=== PATIENT | female | born 1955 | race Hispanic/Latino ===

== ENCOUNTER 2020-12-08 16:01 | Emergency (ER) | payer OTHER, SELFPAY ==
--- NOTE | 2020-12-08 16:26 | ED.URI ---
HPI - URI/Sore Throat General Chief Complaint: Upper Respiratory Infection Stated Complaint: BAck fatigue, tiredness Time Seen by Provider: 12/08/20 16:26 Source: patient, RN notes reviewed and other (family friend as reconciliation machine operator) Mode of arrival: ambulatory Limitations: language barrier History of Present Illness HPI Narrative: 65 year old female accompanied by friend who is here to assist with translation. Patient reports through friend that she has had about 2 week duration of headache, lower back discomfort, some nasal drainage, fatigue, generalized body aches with no known fevers, chills or sweats but states that some symptoms are improving. Patient works in factory setting, is not sure if she has been exposed to COVID, wonders if she could have COVID. Patient relays that she has diabetes but she doesn't take her medication, friend states that patient gave herself insulin and something hurt bad and then she wouldn't take anymore and also states that metformin tablets are too big to swallow, glucose 262 per finger stick. MD elicited complaint: rhinorrhea and other (back pain , fatigue) Pertinent past history: other (uncontrolled diabetes) Onset (ago): week(s) (2) Consistency: improved Severity: mild Pain scale (0-10): 3 Description of mucous: clear Able to tolerate fluids by mouth: Yes Exacerbating factors: exertion Relieving factors: rest Associated symptoms: myalgias, headache, rhinorrhea and other (back pain) Treatments prior to arrival: other (ALEVE) Related Data Home Medications Medication Instructions Recorded Confirmed No Home Medications 12/08/20 12/08/20 Allergies Allergy/AdvReac Type Severity Reaction Status Date / Time No Known Allergies Allergy Verified 12/08/20 16:16 Review of Systems Review of Systems: Narrative: CONSTITUTIONAL: Denies fever, chills, or sweats. EYES: Denies visual changes, redness, or discharge. ENT: positive rhinorrhea, no congestion, sore throat, or otalgia. CARDIOVASCULAR: Denies chest pain, palpitations, or edema. RESPIRATORY: Denies cough or dyspnea. GASTROINTESTINAL: Denies abdominal pain, nausea, vomiting, or diarrhea. GENITOURINARY: Denies dysuria or hematuria. SKIN: Denies rash or itching. MUSCULOSKELETAL: Positive for back pain, joint pain, generalized body aches NEUROLOGIC: reports some headaches, no numbness, or weakness. PSYCHIATRIC: Denies anxiety or depression. All systems reviewed & are unremarkable except as noted in HPI and below PMFSH Past Medical History Medical History (Updated 12/08/20 @ 17:51 by Kelley Lassiter NP) Diabetes type 2, uncontrolled Elevated cholesterol Left patella fracture Surgical History Surgical History (Updated 12/08/20 @ 17:02 by Kelley Lassiter NP) Previous section Family History Family History (Updated 12/08/20 @ 17:03 by Kelley Lassiter NP) Sibling Diabetes mellitus Grandparent Diabetes mellitus Social History Social History (Updated 12/08/20 @ 16:29 by Kelley Lassiter NP) Smoking status: Never smoker Alcohol intake: never Substance use: never Living arrangements: with family Gender identity (if verbalized by the patient): Female Comments At time of signature, agree with nursing past medical, surgical, social and family history. There is no relevant family history pertinent to the presenting complaint Exam Narrative: Exam Narrative: GENERAL: Well-appearing, well-nourished, and in no acute distress. HEAD: Normocephalic, atraumatic. EYES: PERRLA and EOMI. ENT: Nares light red, clear rhinorrhea no epistaxis. Mucous membranes moist.TM's normal with good light reflex, throat pink with no tonsil enlargement or exudates, post nasal drainage. NECK: Supple.no lymphadenopathy CHEST: Clear to auscultation. No respiratory distress.SAO2 100% on room air HEART: Regular rate and rhythm. No murmur heard. Normal peripheral pulses. ABDOMEN: Soft, nontender, nondistended, normal active bowel soun
[2020-12-08 16:27] VITALS: BP 148/61; PULSE 60; RESP 18; TEMP 36.1; O2SAT 100
[2020-12-08 16:59] LABS: Glucose Point of Care 262 (65-105)
[2020-12-09 17:16] LABS: SARS-CoV-2 RNA PCR Positive
== END 2020-12-08 17:36 | disposition home or self-care (01) ==
PROVIDERS: Emergency Provider Registered Nurse; PCP Registered Nurse
DX: U07.1 COVID-19 (principal); E11.9 Type 2 diabetes mellitus without complications; E78.00 Pure hypercholesterolemia, unspecified
CPT/HCPCS: 82948; 99213; C9803; G0463; U0003; U0005

== ENCOUNTER 2022-03-23 16:31 | Observation (INO) | payer SELFPAY ==
[2022-03-23] VITALS (14 sets, daily range): BP systolic 126–167; BP diastolic 59–92; PULSE 55–79; RESP 12–22; TEMP 36.2–36.7; O2SAT 98–100
[2022-03-23 17:13] LABS: Alanine Aminotransferase 14 U/L (6-35); Alkaline Phosphatase 76 U/L (38-126); Anion Gap 4 mmol/L (8-16); Aspartate Amino Transferase 34 U/L (14-36); Bilirubin,Total < 0.1 mg/dL (0.2-1.3); Blood Urea Nitrogen 16 mg/dL (7-17); Calcium 8.7 mg/dL (8.4-10.2); Carbon Dioxide 27 mmol/L (22-30); Chloride 106 mmol/L (98-107); Estimated Glomerular Filt Rate > 60; Glucose 143 mg/dL (65-110); Potassium 4.5 mmol/L (3.4-5.0); Sodium 137 mmol/L (137-145)
[2022-03-23 17:14] LABS: Basophils Absolute Auto 0.1 K/mm3 (0.0-0.1); Eosinophils Absolute Auto 0.1 K/mm3 (0-0.3); Eosinophils Percent Auto 1.7 % (0-4.4); Hematocrit 21.2 % (37.0-47.0); Immature Granulocyte Absolute 0.03 K/mm3 (0.00-0.031); Immature Granulocyte Percent A 0.4 % (0-0.5); Lymphocytes Absolute Auto 2.99 K/mm3 (0.9-3.2); Mean Corpuscular HGB Conc 26.4 g/dl (32-36); Mean Corpuscular Hemoglobin 15.3 pg (26-34); Mean Corpuscular Volume 57.9 fl (80-100); Mean Platelet Volume 8.9 fl (7.4-10.4); Monocytes Absolute Auto 0.5 K/mm3 (0.1-0.6); Monocytes Percent Auto 5.7 % (2.6-8.5); Neutrophils Absolute Auto 4.6 K/mm3 (1.3-6.7); Neutrophils Percent Auto 55.2 % (45.5-73.1); Platelet Count Result 573 k/mm3 (150-375); Red Blood Count 3.66 M/mm3 (4.2-5.4); Red Cell Distribution Width 20.1 % (11.5-14.5); White Blood Count 8.3 K/mm3 (4.5-10.0)
[2022-03-23 17:22] LABS: Hemoglobin 5.6 g/dL (12.0-15.0)
[2022-03-23 17:41] LABS: Platelet Estimate Increased (Adequate)
[2022-03-23 17:42] LABS: Anisocytosis 1+ (NORMAL); Hypochromasia 2+ (NORMAL); Ovalocytes 1+ (NORMAL); Target Cells 2+ (NORMAL)
--- NOTE | 2022-03-23 18:06 | ED.GENADULT ---
HPI - General Adult General Chief complaint: Recheck/Abnormal Lab/Rx Stated complaint: abnormal labs Time Seen by Provider: 03/23/22 17:22 Source: RN notes reviewed History of Present Illness HPI narrative: Patient presents emergency department from home for low hemoglobin. The patient had gone to her PCP yesterday for routine blood work she was called today and told to come the emergency department as she had had a low hemoglobin level. Patient states that she been having some issues with constipation recently but she denies having any abdominal pain she denies any fevers or chills chest pain shortness of breath nausea vomiting diarrhea. She states that she is not currently on any blood thinners states she has had a colonoscopy before in the past Related Data Home Medications Medication Instructions Recorded Confirmed No Home Medications 12/08/20 12/08/20 Allergies Allergy/AdvReac Type Severity Reaction Status Date / Time No Known Allergies Allergy Verified 12/08/20 16:16 Review of Systems Review of Systems: Gen.: Denies fevers or chills ENT: Denies congestion Respiratory: Denies shortness of breath or cough CV: Denies chest pain or palpitations GI: Denies abdominal pain nausea, emesis or diarrhea Musculoskeletal: Denies back pain or muscle pain Neuro: Denies numbness, tingling, weakness or focal weakness Skin: Denies rash Heme: Reports low hemoglobin Except as documented, all other systems reviewed and negative [facility] Past Medical History Medical History Diabetes type 2, uncontrolled Elevated cholesterol Left patella fracture Surgical History Surgical History (Updated 12/08/20 @ 17:02 by Kelley Lassiter NP) Previous section Family History Family History (Updated 12/08/20 @ 17:03 by Kelley Lassiter NP) Sibling Diabetes mellitus Grandparent Diabetes mellitus Social History Social History Smoking status: Never smoker Alcohol intake: never Substance use: never Gender identity (if verbalized by the patient): Female Exam Narrative: APPEARANCE: No acute distress, nontoxic, resting in bed EYES: EOMI HEENT: Normocephalic, atraumatic, OMM RESPIRATORY: No respiratory distress Clear to auscultation bilaterally with no rhonchi wheezing or rales. CARDIOVASCULAR: Regular rate and rhythm without murmurs rubs or gallops. ABDOMINAL: Soft, nontender, nondistended, no rebound or guarding Rectal: No hemorrhoids or fissures no active bleeding small amount of dark brown stool that is mildly Hemoccult positive MUSCULOSKELETAl: Moves all extremities. No clubbing, cyanosis or edema. NEURO: Awake and alert. Following commands, speech normal, no focal deficits SKIN:: Warm, dry. No rashes lesions or abrasions PSYCHIATRIC: Normal affect/mood, Course Course Emergency Course: Patient's family is present to translate Discussed with CONCEPTOR Clara for Dr Alves agrees with admission Discussed with Dr Hurd agrees with consult and plan for colonoscopy in a.m. Discussed with patient and family results of workup and diagnosis. Discussed need for admission. Patient and family understand and agree to current treatment plan Vital Signs Vital signs: Vital Signs Temperature 98.0 F 03/23/22 16:41 Pulse Rate 74 03/23/22 16:41 Respiratory Rate 18 03/23/22 16:41 Blood Pressure 134/62 03/23/22 16:41 Pulse Oximetry 100 03/23/22 16:41 Temperature 98.0 F 03/23/22 16:41 Pulse Rate 74 03/23/22 16:41 Respiratory Rate 18 03/23/22 16:41 Blood Pressure 134/62 03/23/22 16:41 Pulse Oximetry 100 03/23/22 16:41 Medical Decision Making Vital Signs Vital Signs: Vital Signs Temperature 98.0 F 03/23/22 16:41 Pulse Rate 74 03/23/22 16:41 Respiratory Rate 18 03/23/22 16:41 Blood Pressure 134/62 03/23/22 16:41 Pulse Oximetry 100 03/23/22 16:41 Te
--- NOTE | 2022-03-23 18:19 | PC.NURSE ---
LUCERO FROM DR HOLGUIN CONSENT FOR COLONOSCOPY AND EGD GOLYTELY 4L PO NPO AT MIDNIGHT EXCEPT MEDS WITH SIPS
[2022-03-23 18:27] LABS: INR 1.1; Prothrombin Time 13.7 Seconds (11.1-14.7)
[2022-03-23] MEDS: TUBING, BLOOD PLUM PUMP TUBING 1 EACH XX ×2 (19:40→23:42)
[2022-03-23] MEDS: SODIUM CHLORIDE 0.9% IV 250 ML 30 ML IV CONT (19:40)
--- NOTE | 2022-03-23 19:40 | PC.NURSE ---
Unit of PRBCs initiated at 75ml/hr. Pt denies hx of receiving transfusions in the past. Pt denies any symptoms other than fatigue.
--- NOTE | 2022-03-23 19:55 | PC.NURSE ---
Infusion rate increased to 150ml/hr. Pt tolerating well. No adverse reactions noted.
[2022-03-23] MEDS: PEG (High)/E-LYTE SOLN 4,000 ML BTL 4000 ML PO (20:31)
[2022-03-24] VITALS (10 sets, daily range): BP systolic 135–170; BP diastolic 57–80; PULSE 50–77; RESP 12–23; TEMP 35.7–36.6; O2SAT 96–100
[2022-03-24 06:48] LABS: Basophils Absolute Auto 0.1 K/mm3 (0.0-0.1); Basophils Percent Auto 1.1 % (0.2-1.2); Eosinophils Absolute Auto 0.2 K/mm3 (0-0.3); Eosinophils Percent Auto 2.8 % (0-4.4); Hematocrit 30.3 % (37.0-47.0); Hemoglobin 8.7 g/dL (12.0-15.0); Immature Granulocyte Absolute 0.02 K/mm3 (0.00-0.031); Immature Granulocyte Percent A 0.3 % (0-0.5); Lymphocytes Absolute Auto 2.56 K/mm3 (0.9-3.2); Lymphocytes Percent Auto 35.2 % (18.3-44.2); Mean Corpuscular HGB Conc 28.7 g/dl (32-36); Mean Corpuscular Hemoglobin 18.9 pg (26-34); Mean Corpuscular Volume 65.9 fl (80-100); Mean Platelet Volume 8.9 fl (7.4-10.4); Monocytes Absolute Auto 0.6 K/mm3 (0.1-0.6); Monocytes Percent Auto 7.8 % (2.6-8.5); Neutrophils Absolute Auto 3.8 K/mm3 (1.3-6.7); Neutrophils Percent Auto 52.8 % (45.5-73.1); Platelet Count Result 472 k/mm3 (150-375); Red Cell Distribution Width 27.8 % (11.5-14.5); White Blood Count 7.3 K/mm3 (4.5-10.0)
[2022-03-24 07:03] LABS: Alanine Aminotransferase 23 U/L (6-35); Albumin Level 3.5 g/dL (3.5-5.1); Alkaline Phosphatase 81 U/L (38-126); Anion Gap 8 mmol/L (8-16); Aspartate Amino Transferase 55 U/L (14-36); Bilirubin,Total 0.4 mg/dL (0.2-1.3); Blood Urea Nitrogen 13 mg/dL (7-17); Carbon Dioxide 24 mmol/L (22-30); Chloride 107 mmol/L (98-107); Estimated Glomerular Filt Rate > 60; Glucose 93 mg/dL (65-110); Sodium 139 mmol/L (137-145)
--- NOTE | 2022-03-24 07:15 | WPDGICN ---
Assessment and Plan Assessment and plan (1) Anemia: Code(s): D64.9 - Anemia, unspecified Status: Acute Assessment and Plan: Patient presented with profound microcytic anemia. Plan to check iron studies suspect this is iron deficiency. Patient transfused last evening to increase blood count. Will continue to monitor for blood loss. She colonoscopy and EGD will be arranged. EGD will be performed today. Colonoscopy after she is able to complete preparation. (2) GI bleed: Code(s): K92.2 - Gastrointestinal hemorrhage, unspecified Status: Acute Assessment and Plan: Occult blood in stool identified. Plan is to evaluate with GI endoscopy initially an EGD in subsequent colonoscopy when she is able to tolerate preparation. GI Consult Note Consult date/time: 03/24/22 07:15 HPI: Delaney Crandall is a 66 year old female I am asked to see by the emergency room because of profound anemia. The patient speaks Latvian. patient in usual state of health presented to her family doctor for routine laboratory testing. She was found to have a rather profound anemia and for this reason sent to the emergency room. In the emergency room patient was identified as having microcytic anemia with occult blood in stool. Patient denies any obvious bleeding. She denies abdominal pain. She has never had a previous endoscopies. She does not take blood thinners. She was admitted for blood transfusion and further evaluation. Review of Systems Review of Systems: All systems reviewed & are unremarkable except as noted in HPI and below PMFSH Past Medical History Medical History Diabetes type 2, uncontrolled Elevated cholesterol Left patella fracture Surgical History Surgical History (Updated 12/08/20 @ 17:02 by Kelley Lassiter NP) Previous section Family History Family History Sibling Diabetes mellitus Grandparent Diabetes mellitus Social History Social History Smoking status: Never smoker Second hand tobacco smoke exposure: No Alcohol intake: never Substance use: never Gender identity (if verbalized by the patient): Female Spiritual care concerns: No Meds Home Medications and Allergies Home Medications Medication Instructions Recorded Confirmed Type atorvastatin 20 mg PO HS 03/23/22 03/23/22 History gabapentin 300 mg PO TID 03/23/22 03/23/22 History Allergies Allergy/AdvReac Type Severity Reaction Status Date / Time No Known Allergies Allergy Verified 12/08/20 16:16 Vital Signs Vital Signs - 24 hr 03/23/22 16:41 03/23/22 19:00 03/23/22 19:15 Temperature 98.0 F Pulse Rate 74 75 77 Respiratory Rate 18 16 16 Blood Pressure 134/62 Pulse Oximetry 100 99 99 03/23/22 19:18 03/23/22 19:30 03/23/22 19:31 Temperature 97.2 F L Pulse Rate 77 76 79 Respiratory Rate 20 19 22 H Blood Pressure 139/70 132/67 132/67 Pulse Oximetry 99 99 03/23/22 19:45 03/23/22 19:46 03/23/22 19:55 Temperature 97.8 F Pulse Rate 74 79 76 Respiratory Rate 20 21 H 21 H Blood Pressure 127/63 129/60 Pulse Oximetry 100 03/23/22 20:51 03/23/22 21:00 03/23/22 22:00 Temperature 97.7 F Pulse Rate 73 62 55 L Respiratory Rate 16 16 16 Blood Pressure 126/66 127/88 149/59 H Pulse Oximetry 100 100 100 03/23/22 23:25 03/23/22 23:29 03/24/22 01:47 Temperature 97.2 F L 97.4 F L 97.5 F L Pulse Rate 78 78 77 Respiratory Rate 12 12 12 Blood Pressure 167/82 H 156/92 H 165/78 H Pulse Oximetry 99 98 98 03/24/22 05:59 Temperature 97.8 F Pulse Rate 63 Respiratory Rate 16 Blood Pressure 135/57 L Pulse Oximetry 99 Exam Narrative: Physical exam reveals patient to be alert. Vital signs stable. HEENT exam reveals no icterus. Lungs are clear to auscultation and percussion. Heart is wit
[2022-03-24 08:02] LABS: Anisocytosis 2+ (NORMAL); Hypochromasia 2+ (NORMAL); Platelet Estimate Adequate (Adequate); Target Cells 1+ (NORMAL)
[2022-03-24 08:03] LABS: Poikilocytosis 1+ (NORMAL)
--- NOTE | 2022-03-24 09:12 | WPDANESEPPF ---
Anes - Initial Pre Proc Eval Procedure: Operation Date: 03/24/22 11:45 Proposed Procedures p Esophagogastroduodenoscopy - Mehdi Hurd MD Operation Date: 03/25/22 12:30 Proposed Procedures p Colonoscopy - Mhedi Hurd MD Date/Time: 03/24/22 09:12 Surgeon: Casi Conroy PA-C Pre Op Diagnosis: Anemia, GI bleed Patient Data Age: 66 Gender: F Height: 1.5 m Weight: 70 kg Last Vital Signs Temp 36.6 C 03/24/22 05:59 Pulse 63 03/24/22 05:59 Resp 16 03/24/22 05:59 BP 135/57 L 03/24/22 05:59 Pulse Ox 99 03/24/22 05:59 Allergies Allergy/AdvReac Type Severity Reaction Status Date / Time No Known Allergies Allergy Verified 03/24/22 10:31 Home Medications Medication Instructions Recorded Confirmed Type atorvastatin 20 mg PO HS 03/23/22 03/23/22 History gabapentin 300 mg PO TID 03/23/22 03/23/22 History Laboratory Tests 03/23/22 03/23/22 03/23/22 16:50 16:50 18:09 WBC 8.3 K/mm3 K/mm3 (4.5-10.0) RBC 3.66 M/mm3 L M/mm3 (4.2-5.4) Hgb 5.6 g/dL L* g/dL (12.0-15.0) Hct 21.2 % L % (37.0-47.0) MCV 57.9 fl L fl (80-100) MCH 15.3 pg L pg (26-34) MCHC 26.4 g/dl L g/dl (32-36) RDW 20.1 % H % (11.5-14.5) Plt Count 573 k/mm3 H k/mm3 (150-375) MPV 8.9 fl fl (7.4-10.4) Immature Gran % (Auto) 0.4 % % (0-0.5) Neut % (Auto) 55.2 % % (45.5-73.1) Lymph % (Auto) 36.0 % % (18.3-44.2) [place] % (Auto) 5.7 % % (2.6-8.5) Eos % (Auto) 1.7 % % (0-4.4) Baso % (Auto) 1.0 % % (0.2-1.2) Lymph # (Auto) 2.99 K/mm3 K/mm3 (0.9-3.2) [place] # (Auto) 0.5 K/mm3 K/mm3 (0.1-0.6) Eos # (Auto) 0.1 K/mm3 K/mm3 (0-0.3) Baso # (Auto) 0.1 K/mm3 K/mm3 (0.0-0.1) Abs Immat Gran (auto) 0.03 K/mm3 K/mm3 (0.00-0.031) Absolute Neuts (auto) 4.6 K/mm3 K/mm3 (1.3-6.7) Absolute Nucleated RBC 0.0 K/mm3 K/mm3 (0.0-0.012) Nucleated RBC % 0.0 % % (0.0-0.2) Platelet Estimate Increased (Adequate) Hypochromasia 2+ (NORMAL) Poikilocytosis Anisocytosis 1+ (NORMAL) Target Cells 2+ (NORMAL) Ovalocytes 1+ (NORMAL) PT 13.7 Seconds Seconds (11.1-14.7) INR 1.1 APTT 29.0 SECONDS SECONDS (22.3-36.8) Sodium 137 mmol/L mmol/L (137-145) Potassium 4.5 mmol/L mmol/L (3.4-5.0) Chloride 106 mmol/L mmol/L (98-107) Carbon Dioxide 27 mmol/L mmol/L (22-30) Anion Gap 4 mmol/L L mmol/L (8-16) BUN 16 mg/dL mg/dL (7-17) Creatinine 0.90 mg/dL mg/dL (0.7-1.0) Estim Creat Clear Calc Not Reportable Estimated GFR > 60 (59 - ) Glucose 143 mg/dL H mg/dL (65-110) Calcium 8.7 mg/dL mg/dL (8.4-10.2) Total Bilirubin < 0.1 mg/dL L mg/dL (0.2-1.3) AST 34 U/L U/L (14-36) ALT 14 U/L U/L (6-35) Alkaline Phosphatase 76 U/L U/L (38-126) Total Protein 7.0 g/dL g/dL (6.3-8.2) Albumin 4.0 g/dL g/dL (3.5-5.1) Blood Type Antibody Screen Crossmatch 03/23/22 03/24/22 03/24/22 18:09 06:21 06:21 WBC 7.3 K/mm3 K/mm3 (4.5-10.0) RBC 4.60 M/mm3 M/mm3 (4.2-5.4) Hgb 8.7 g/dL L D g/dL (12.0-15.0) Hct 30.3 % L % (37.0-47.0) MCV 65.9 fl L D fl (80-100) MCH 18.9 pg L D pg (26-34) MCHC 28.7 g/dl L g/dl (32-36) RDW 27.8 % H % (11.5-14.5) Plt Count 472 k/mm3 H k/mm3 (150-375) MPV 8.9 fl fl (7.4-10.4) Immature Gran % (Auto) 0.3 % % (0-0.5) Neut % (Auto) 52.8 % % (45.5-73.1) Lymph % (Auto) 35.2 % % (18.3-44.2) [place] % (A
--- NOTE | 2022-03-24 10:32 | PC.NURSE ---
to GI lab per ortega.
[2022-03-24] MEDS: LACTATED RINGERS 1,000 ML 150 ML IV CONT (10:33)
--- NOTE | 2022-03-24 10:49 | SUR.PREOP ---
Arline Interpreting service used in patient room [place] [id number] for all pre operative information and plan of care. [facility] [id number] was used with Dr Hurd and Dr Martinez for consent.
[2022-03-24] MEDS: BENZOCAINE (*SP) 60 ML SPRAY CAN (HURRICAINE) 1 SPRAY MUCOUS MEM (11:10)
--- NOTE | 2022-03-24 11:55 | SUR.PHASEII ---
Arline used for interpretation of results of the EGD. Electric Cutter Operator name Barbara #[id number].
[2022-03-24] MEDS: GABAPENTIN 300 MG CAPSULE PO ×2 (12:25→17:35)
--- NOTE | 2022-03-24 14:07 | PM.IMHP ---
H&P: HPI History of Present Illness Date/Time: 03/24/22 14:07 Chief Complaint: anemia Narrative: Pt is a 66 yo female w/ hx of HLD and DM who presented to the ED for treatment of low hemoglobin. Pt is Tajik speaking and has friends at the bedside translating for her. Pt tells me that she started having severe epigastric pain radiating to her back 1 week ago. The pain has been constant and associated with nausea, vomiting, and constipation. She denies melena, hematochezia, or hemoptysis. Pain does not radiate. Pt went to see her doctor 2 days ago and they called her yesterday to inform her of a significantly low hgb and informed her to go to the ED. Fecal occult was positive and hgb was 5.6 on arrival. Pt is being admitted as observation in this setting for further investigation and treatment. Review of Systems Review of Systems: All systems reviewed & are unremarkable except as noted in HPI and below PMFSH Past Medical History Medical History (Updated 03/24/22 @ 14:21 by Casi Conroy PA-C) Diabetes mellitus Elevated cholesterol Hyperlipidemia Left patella fracture Obesity Surgical History Surgical History Previous section Family History Family History Sibling Diabetes mellitus Grandparent Diabetes mellitus Social History Social History (Updated 03/24/22 @ 14:22 by Casi Conroy PA-C) Social History: lives with her boyfriend. states she does not have any family and wishes for her surrogate decision maker to be her friend at bedside Jasmina Les. She wishes to be a full code. 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 Gender identity (if verbalized by the patient): Female Spiritual care concerns: No Meds Home Medications and Allergies Home Medications Medication Instructions Recorded Confirmed Type atorvastatin 20 mg PO HS 03/23/22 03/23/22 History gabapentin 300 mg PO TID 03/23/22 03/23/22 History Allergies Allergy/AdvReac Type Severity Reaction Status Date / Time No Known Allergies Allergy Verified 03/24/22 10:31 Vital Signs Vital Signs - 24 hr 03/23/22 16:41 03/23/22 19:00 03/23/22 19:15 Temperature 98.0 F Pulse Rate 74 75 77 Respiratory Rate 18 16 16 Blood Pressure 134/62 Pulse Oximetry 100 99 99 03/23/22 19:18 03/23/22 19:30 03/23/22 19:31 Temperature 97.2 F L Pulse Rate 77 76 79 Respiratory Rate 20 19 22 H Blood Pressure 139/70 132/67 132/67 Pulse Oximetry 99 99 03/23/22 19:45 03/23/22 19:46 03/23/22 19:55 Temperature 97.8 F Pulse Rate 74 79 76 Respiratory Rate 20 21 H 21 H Blood Pressure 127/63 129/60 Pulse Oximetry 100 03/23/22 20:51 03/23/22 21:00 03/23/22 22:00 Temperature 97.7 F Pulse Rate 73 62 55 L Respiratory Rate 16 16 16 Blood Pressure 126/66 127/88 149/59 H Pulse Oximetry 100 100 100 03/23/22 23:25 03/23/22 23:29 03/24/22 01:47 Temperature 97.2 F L 97.4 F L 97.5 F L Pulse Rate 78 78 77 Respiratory Rate 12 12 12 Blood Pressure 167/82 H 156/92 H 165/78 H Pulse Oximetry 99 98 98 03/24/22 05:59 03/24/22 10:34 03/24/22 11:21 Temperature 97.8 F 97.1 F L Pulse Rate 63 50 L 74 Respiratory Rate 16 15 23 H Blood Pressure 135/57 L 147/67 H 152/76 H Pulse Oximetry 99 100 96 03/24/22 11:31 03/24/22 11:51 Temperature Pulse Rate 73 70 Respiratory Rate 21 H 20 Blood Pressure 156/80 H 170/70 H Pulse Oximetry 97 100 Exam Narrative: General: No acute distress, non toxic appearing Eyes: PERRL, no scleral icterus HEENT: NCAT, external ears normal, MMM Respiratory: No respiratory distress, Lungs CTA bilaterally, no wheezing Cardiovascular: RRR, no murmur Abdominal: Soft, minima
[2022-03-24 15:03] LABS: Hematocrit 33.3 % (37.0-47.0); Hemoglobin 9.8 g/dL (12.0-15.0)
[2022-03-24 15:09] LABS: Cholesterol 218 mg/dL (0-200)
[2022-03-24 15:36] LABS: Iron 49 ug/dL (37-170)
[2022-03-24 15:47] LABS: Percent Iron Saturation 10 % (20-50)
[2022-03-24 16:13] LABS: Ferritin 5.59 ng/mL (11.1-264)
[2022-03-24 17:03] LABS: Glucose Point of Care 147 mg/dl (65-105)
[2022-03-24] MEDS: PEG (High)/E-LYTE SOLN 4,000 ML BTL 3000 ML PO (17:36)
[2022-03-24 17:52] LABS: Hemoglobin A1C 6.3 % (<5.7)
[2022-03-24] MEDS: PANTOPRAZOLE 40 MG TABLET PO (20:56)
[2022-03-24] MEDS: ATORVASTATIN 20 MG TABLET PO (20:56)
[2022-03-24 21:14] LABS: Hematocrit 30.3 % (37.0-47.0); Hemoglobin 8.8 g/dL (12.0-15.0)
[2022-03-24 21:25] LABS: Glucose Point of Care 95 mg/dl (65-105)
[2022-03-25] VITALS (7 sets, daily range): BP systolic 113–140; BP diastolic 61–87; PULSE 48–57; RESP 16–18; TEMP 36.2–36.6; O2SAT 94–99
[2022-03-25 04:20] LABS: Basophils Absolute Auto 0.1 K/mm3 (0.0-0.1); Basophils Percent Auto 1.1 % (0.2-1.2); Eosinophils Absolute Auto 0.2 K/mm3 (0-0.3); Eosinophils Percent Auto 2.8 % (0-4.4); Hematocrit 29.6 % (37.0-47.0); Hemoglobin 8.6 g/dL (12.0-15.0); Immature Granulocyte Absolute 0.02 K/mm3 (0.00-0.031); Immature Granulocyte Percent A 0.3 % (0-0.5); Lymphocytes Absolute Auto 2.35 K/mm3 (0.9-3.2); Lymphocytes Percent Auto 32.6 % (18.3-44.2); Mean Corpuscular HGB Conc 29.1 g/dl (32-36); Mean Corpuscular Hemoglobin 18.6 pg (26-34); Mean Corpuscular Volume 63.9 fl (80-100); Mean Platelet Volume 8.5 fl (7.4-10.4); Monocytes Absolute Auto 0.5 K/mm3 (0.1-0.6); Monocytes Percent Auto 6.9 % (2.6-8.5); Neutrophils Absolute Auto 4.1 K/mm3 (1.3-6.7); Neutrophils Percent Auto 56.3 % (45.5-73.1); Platelet Count Result 488 k/mm3 (150-375); Red Blood Count 4.63 M/mm3 (4.2-5.4); Red Cell Distribution Width 27.6 % (11.5-14.5); White Blood Count 7.2 K/mm3 (4.5-10.0)
[2022-03-25 04:30] LABS: Alanine Aminotransferase 21 U/L (6-35); Albumin Level 3.3 g/dL (3.5-5.1); Alkaline Phosphatase 80 U/L (38-126); Anion Gap 9 mmol/L (8-16); Aspartate Amino Transferase 41 U/L (14-36); Bilirubin,Total 0.4 mg/dL (0.2-1.3); Blood Urea Nitrogen 9 mg/dL (7-17); Carbon Dioxide 24 mmol/L (22-30); Chloride 108 mmol/L (98-107); Estimated Glomerular Filt Rate > 60; Glucose 96 mg/dL (65-110); Potassium 3.5 mmol/L (3.4-5.0); Sodium 141 mmol/L (137-145)
[2022-03-25 04:42] LABS: Anisocytosis 1+ (NORMAL); Hypochromasia 1+ (NORMAL); Platelet Estimate Adequate (Adequate); Poikilocytosis 1+ (NORMAL)
[2022-03-25 04:43] LABS: Target Cells 2+ (NORMAL)
[2022-03-25 08:53] LABS: Hematocrit 30.2 % (37.0-47.0); Hemoglobin 8.7 g/dL (12.0-15.0)
[2022-03-25] MEDS: PANTOPRAZOLE 40 MG TABLET PO (09:59)
[2022-03-25] MEDS: GABAPENTIN 300 MG CAPSULE PO (09:59)
--- NOTE | 2022-03-25 10:09 | PM.IMPN ---
Progress Note: A&P Assessment and Plan (1) Anemia: Code(s): D64.9 - Anemia, unspecified Status: Acute Assessment and Plan: -came in with profound anemia w/ hgb 5.6 -up to 8.7 s/p 2 units of PRBC, has remained stable -fecal occult positive -EGD yesterday with Dr. Hurd, had ulcer as described below -colonoscopy today -ferritin low, iron low end of normal, TIBC high -continue monitoring (2) GI bleed: Code(s): K92.2 - Gastrointestinal hemorrhage, unspecified Status: Acute Assessment and Plan: -EGD w/ acute duodenal ulcer, not actively bleeding -avoid NSAIDS -Continue Protonix -colonoscopy today (3) Diabetes mellitus: Code(s): E11.9 - Type 2 diabetes mellitus without complications Status: Acute Assessment and Plan: -states she was supposed to be on meds but has not taken them for a long time -glucose was 143 on arrival -A1c 6.3 -consider sliding scale and accuchecks if blood sugar increases -glucose 96 today (4) Hyperlipidemia: Code(s): E78.5 - Hyperlipidemia, unspecified Status: Acute Assessment and Plan: -continue atorvastatin -total cholesterol 218 -lifestyle changes, diet and exercise encouraged Subjective Date/time seen: 03/25/22 10:09 Interval history: Pt is a 66 yo female w/ hx of HLD and DM who presented to the ED for treatment of low hemoglobin. Pt has no complaints today. No abd pain today. No N/V. Having some loose stools still since drinking the colon prep solution. No cp/sob. Going for colonoscopy today. Stratus used for translation. Review of Systems Review of Systems: All systems reviewed & are unremarkable except as noted in HPI and below Exam Narrative: General: No acute distress, non toxic appearing Eyes: PERRL, no scleral icterus HEENT: NCAT, external ears normal, MMM Respiratory: No respiratory distress, Lungs CTA bilaterally, no wheezing Cardiovascular: RRR, no murmur Abdominal: Soft, no ttp, non distended, no rebound or guarding Musculoskeletal: Moves all 4 extremities, no edema Neurological: A/Ox3, speech clear, no facial asymmetry Skin: Warm, dry, no rashes Psychiatric: Normal affect, normal mood Objective Data Vital Signs Vital Signs: Vital Signs - 24 hr 03/24/22 10:34 03/24/22 11:21 03/24/22 11:31 Temperature 97.1 F L Pulse Rate 50 L 74 73 Respiratory Rate 15 23 H 21 H Blood Pressure 147/67 H 152/76 H 156/80 H Pulse Oximetry 100 96 97 03/24/22 11:51 03/24/22 13:35 03/24/22 13:45 Temperature 97.5 F L 97.5 F L Pulse Rate 70 66 72 Respiratory Rate 20 20 18 Blood Pressure 170/70 H 160/77 H 160/77 H Pulse Oximetry 100 100 100 03/24/22 13:55 03/24/22 21:51 03/25/22 05:57 Temperature 97.5 F L 96.9 F L 97.2 F L Pulse Rate 60 71 57 L Respiratory Rate 18 18 16 Blood Pressure 158/72 H 147/72 H 133/62 Pulse Oximetry 100 100 99 Intake/Output Intake/Output: Intake & Output 03/22/22 03/23/22 03/24/22 03/25/22 23:59 23:59 23:59 23:59 Intake Total 350 5050 0 Output Total 4400 0 Balance 350 650 0 Meds/Results Medications: Active Medications Generic Name Dose Route Start Last Admin Trade Name Freq PRN Reason Stop Dose Admin Atorvastatin Calcium 20 mg 03/24/22 21:00 03/24/22 20:56 Atorvastatin 20 Mg Tablet PO 20 mg HS ADEOLA Administration Gabapentin 300 mg 03/24/22 09:00 03/25/22 09:59 Gabapentin 300 Mg Capsule PO 300 mg TID ADEOLA Administration Pantoprazole Sodium 40 mg 03/24/22 21:00 03/25/22 09:59 Pantoprazole 40 Mg Tablet PO 40 mg Q12HR ADEOLA Administration Labs Labs: Laboratory Results - last 24 hr 03/24/22 03/24/22 03/24/22 14:39 14:42 14:42 WBC RBC Hgb 9.8 L Hct 33.3 L MCV MCH MCHC RDW Plt Count MPV Immature Gran % (Auto) Neut % (Auto) Lymph % (Auto) [place] % (Auto) Eos % (Auto) Baso % (Auto) Lymph # (Auto) [place] # (
[2022-03-25] MEDS: LACTATED RINGERS 1,000 ML 150 ML IV CONT (10:38)
--- NOTE | 2022-03-25 10:41 | SUR.PREOP ---
Arline hot metal mixer operator Geoffrey #[id number] to obtain consent
--- NOTE | 2022-03-25 11:45 | WPDANESEPPF ---
Anes - Initial Pre Proc Eval Procedure: Operation Date: 03/24/22 11:45 Proposed Procedures p Esophagogastroduodenoscopy - Mehdi Hurd MD Operation Date: 03/25/22 12:30 Proposed Procedures p Colonoscopy - Mehdi Hurd MD Date/Time: 03/25/22 11:45 Surgeon: Casi Conroy PA-C Pre Op Diagnosis: Anemia, GI bleed Patient Data Age: 66 Gender: F Height: 1.5 m Weight: 70 kg Last Vital Signs Temp 97.4 F L 03/25/22 10:40 Pulse 50 L 03/25/22 10:40 Resp 16 03/25/22 10:40 BP 140/87 03/25/22 10:40 Pulse Ox 99 03/25/22 10:40 Allergies Allergy/AdvReac Type Severity Reaction Status Date / Time No Known Allergies Allergy Verified 03/25/22 10:38 Home Medications Medication Instructions Recorded Confirmed Type atorvastatin 20 mg PO HS 03/23/22 03/23/22 History gabapentin 300 mg PO TID 03/23/22 03/23/22 History Laboratory Tests 03/24/22 03/24/22 03/24/22 14:39 14:42 14:42 WBC RBC Hgb 9.8 g/dL L g/dL (12.0-15.0) Hct 33.3 % L % (37.0-47.0) MCV MCH MCHC RDW Plt Count MPV Immature Gran % (Auto) Neut % (Auto) Lymph % (Auto) [place] % (Auto) Eos % (Auto) Baso % (Auto) Lymph # (Auto) [place] # (Auto) Eos # (Auto) Baso # (Auto) Abs Immat Gran (auto) Absolute Neuts (auto) Absolute Nucleated RBC Nucleated RBC % Platelet Estimate Hypochromasia Poikilocytosis Anisocytosis Target Cells Sodium Potassium Chloride Carbon Dioxide Anion Gap BUN Creatinine Estim Creat Clear Calc Estimated GFR Glucose POC Capillary Glucose Hemoglobin A1c 6.3 % H % (<5.7) Calcium Iron TIBC % Saturation Ferritin Total Bilirubin AST ALT Alkaline Phosphatase Total Protein Albumin Cholesterol 218 mg/dL H mg/dL (0-200) 03/24/22 03/24/22 03/24/22 14:42 17:00 20:59 WBC RBC Hgb Hct MCV MCH MCHC RDW Plt Count MPV Immature Gran % (Auto) Neut % (Auto) Lymph % (Auto) [place] % (Auto) Eos % (Auto) Baso % (Auto) Lymph # (Auto) [place] # (Auto) Eos # (Auto) Baso # (Auto) Abs Immat Gran (auto) Absolute Neuts (auto) Absolute Nucleated RBC Nucleated RBC % Platelet Estimate Hypochromasia Poikilocytosis Anisocytosis Target Cells Sodium Potassium Chloride Carbon Dioxide Anion Gap BUN Creatinine Estim Creat Clear Calc Estimated GFR Glucose POC Capillary Glucose 147 mg/dl H mg/dl 95 mg/dl mg/dl (65-105) (65-105) Hemoglobin A1c Calcium Iron 49 ug/dL ug/dL (37-170) TIBC 502 ug/dL H ug/dL (261-462) % Saturation 10 % L % (20-50) Ferritin 5.59 ng/mL L ng/mL (11.1-264) Total Bilirubin AST ALT Alkaline Phosphatase Total Protein Albumin Cholesterol 03/24/22 03/25/22 03/25/22 21:00 04:12 04:12 WBC 7.2 K/mm3 K/mm3 (4.5-10.0) RBC 4.63 M/mm3 M/m
--- NOTE | 2022-03-25 13:53 | PM.DS ---
DS: Admitting Diagnosis Discharge Date 03/25/22 Admitting Diagnosis anemia DS: Discharge Diagnosis Discharge Diagnosis (1) Anemia: Code(s): D64.9 - Anemia, unspecified Status: Acute Assessment and Plan: -came in with profound anemia w/ hgb 5.6 -up to 8.7 s/p 2 units of PRBC, has remained stable -fecal occult positive -EGD yesterday with Dr. Hurd, had ulcer as described below -colonoscopy today w/ hemorrhoids only -ferritin low, iron low end of normal, TIBC high -start iron supplementation -stable for discharge per GI (2) GI bleed: Code(s): K92.2 - Gastrointestinal hemorrhage, unspecified Status: Acute Assessment and Plan: -EGD w/ acute duodenal ulcer, not actively bleeding -avoid NSAIDS -Continue Protonix -colonoscopy w/ hemorrhoids only, continue PPI, ready for discharge per GI (3) Diabetes mellitus: Code(s): E11.9 - Type 2 diabetes mellitus without complications Status: Acute Assessment and Plan: -states she was supposed to be on meds but has not taken them for a long time -glucose was 143 on arrival -A1c 6.3 -glucose 96 today -diet and lifestyle modifications -PCP follow up (4) Hyperlipidemia: Code(s): E78.5 - Hyperlipidemia, unspecified Status: Acute Assessment and Plan: -continue atorvastatin -total cholesterol 218 -lifestyle changes, diet and exercise encouraged DS: Summary Hospital Course Reason for hospitalization: Pt is a 66 yo female w/ hx of HLD and DM who presented to the ED for treatment of low hemoglobin. Please see HPI for further details. Hospital Course: Please see above for details of hospital course. Status at Discharge Functional status at discharge: independent ambulation Time Spent with Patient Time attestation: Total time spent providing and/or coordinating discharge services: 32 Time spent: Greater than 30 minutes Exam Narrative: General: No acute distress, non toxic appearing Eyes: PERRL, no scleral icterus HEENT: NCAT, external ears normal, MMM Respiratory: No respiratory distress, Lungs CTA bilaterally, no wheezing Cardiovascular: RRR, no murmur Abdominal: Soft, no ttp, non distended, no rebound or guarding Musculoskeletal: Moves all 4 extremities, no edema Neurological: A/Ox3, speech clear, no facial asymmetry Skin: Warm, dry, no rashes Psychiatric: Normal affect, normal mood DS: Data Data Completed and Pending Labs on day of discharge: Labs from last 24 hours 03/25/22 03/25/22 03/25/22 08:47 04:12 04:12 WBC 7.2 RBC 4.63 Hgb 8.7 L 8.6 L Hct 30.2 L 29.6 L MCV 63.9 L MCH 18.6 L MCHC 29.1 L RDW 27.6 H Plt Count 488 H MPV 8.5 Immature Gran % (Auto) 0.3 Neut % (Auto) 56.3 Lymph % (Auto) 32.6 [place] % (Auto) 6.9 Eos % (Auto) 2.8 Baso % (Auto) 1.1 Lymph # (Auto) 2.35 [place] # (Auto) 0.5 Eos # (Auto) 0.2 Baso # (Auto) 0.1 Abs Immat Gran (auto) 0.02 Absolute Neuts (auto) 4.1 Absolute Nucleated RBC 0.0 Nucleated RBC % 0.0 Platelet Estimate Adequate Hypochromasia 1+ Poikilocytosis 1+ Anisocytosis 1+ Target Cells 2+ Sodium 141 Potassium 3.5 Chloride 108 H Carbon Dioxide 24 Anion Gap 9 BUN 9 Creatinine 0.70 Estim Creat Clear Calc Not Reportable Estimated GFR > 60 Glucose 96 POC Capillary Glucose Hemoglobin A1c Calcium 8.0 L Iron TIBC % Saturation Ferritin Total Bilirubin 0.4 AST 41 H ALT 21 Alkaline Phosphatase 80 Total Protein 7.0 Albumin 3.3 L Cholesterol 03/24/22 03/24/22 03/24/22 21:00 20:59 17:00 WBC RBC Hgb 8.8 L Hct 30.3 L MCV MCH MCHC RDW Plt Count MPV Immature Gran % (Auto) Neut % (Auto) Lymph % (Auto) [place] % (Auto) Eos % (Auto) Baso % (Auto) Lymph # (Auto) [place] # (Auto) Eos # (Auto) Baso
[2022-03-25 14:36] LABS: Hematocrit 32.5 % (37.0-47.0); Hemoglobin 9.2 g/dL (12.0-15.0)
== END 2022-03-25 15:11 | disposition home or self-care (01) ==
LOC: ANHED 18:51 → ANH3MEDSUR 20:22
PROVIDERS: Internal Medicine Gastroenterology; Admitting Provider Internal Medicine; Emergency Provider Emergency Medicine; Visit Provider Physician Assistant
PROC: 0DJ08ZZ Inspection of Upper Intestinal Tract, Via Natural or Artificial Opening Endoscopic (ICD-10-PCS; CPT 43235; principal; 2022-03-24 11:45)
PROC: 0DJD8ZZ Inspection of Lower Intestinal Tract, Via Natural or Artificial Opening Endoscopic (ICD-10-PCS; CPT 45378; principal; 2022-03-25 12:30)
DX: D50.9 Iron deficiency anemia, unspecified (principal); K26.3 Acute duodenal ulcer without hemorrhage or perforation; K64.8 Other hemorrhoids; R19.5 Other fecal abnormalities; E78.5 Hyperlipidemia, unspecified; E11.9 Type 2 diabetes mellitus without complications
CPT/HCPCS: 45378; 43239; 36415; 36430; 80053; 82465; 82728; 82948; 83036; 83540; 83550; 85014; 85018; 85025; 85610; 85730; 86850; 86900; 86901; 86920; 87081; 99285; A9270; G0378; G0379; J2704; J7050; J7120; P9016

== ENCOUNTER 2022-03-28 11:10 | Outpatient (CLI) | payer SELFPAY ==
[2022-03-28 11:43] LABS: Basophils Absolute Auto 0.1 K/mm3 (0.0-0.1); Basophils Percent Auto 1.4 % (0.2-1.2); Eosinophils Absolute Auto 0.2 K/mm3 (0-0.3); Eosinophils Percent Auto 2.3 % (0-4.4); Hemoglobin 9.8 g/dL (12.0-15.0); Immature Granulocyte Absolute 0.02 K/mm3 (0.00-0.031); Immature Granulocyte Percent A 0.3 % (0-0.5); Lymphocytes Absolute Auto 1.93 K/mm3 (0.9-3.2); Mean Corpuscular HGB Conc 28.8 g/dl (32-36); Mean Corpuscular Volume 65.9 fl (80-100); Mean Platelet Volume 8.5 fl (7.4-10.4); Monocytes Absolute Auto 0.3 K/mm3 (0.1-0.6); Monocytes Percent Auto 4.7 % (2.6-8.5); Neutrophils Absolute Auto 4.2 K/mm3 (1.3-6.7); Neutrophils Percent Auto 62.3 % (45.5-73.1); Platelet Count Result 478 k/mm3 (150-375); Red Blood Count 5.16 M/mm3 (4.2-5.4); Red Cell Distribution Width 28.4 % (11.5-14.5); White Blood Count 6.7 K/mm3 (4.5-10.0)
[2022-03-28 12:09] LABS: Anisocytosis 1+ (NORMAL); Hypochromasia 1+ (NORMAL); Platelet Estimate Increased (Adequate)
== END 2022-03-28 11:11 | disposition home or self-care (01) ==
LOC: ANHLAB 11:12
PROVIDERS: Visit Provider Physician Assistant
DX: D64.9 Anemia, unspecified (principal)
CPT/HCPCS: 36415; 85025

== ENCOUNTER 2022-09-25 15:32 | Observation (INO) | payer SELFPAY ==
[2022-09-25] VITALS (8 sets, daily range): BP systolic 93–117; BP diastolic 66–71; PULSE 85–92; RESP 15–20; TEMP 36.4–36.6; O2SAT 93–99; BMI 25.8
--- NOTE | ~2022-09-25 | CT_ITS ---
EXAMINATION: CT abdomen pelvis w con DATE: 09/25/2022 19:22 INDICATION: abdominal pain TECHNIQUE: Computed tomography (CT) of the abdomen and pelvis was performed with 100 mL Omnipaque-350 intravenous contrast. Automated exposure control and iterative reconstruction technique were employe d. The dose-length product was 572.99 mGy-cm. COMPARISON: None. FINDINGS: Lower thorax: Dilated central pulmonary arteries as can be seen with pulmonary arterial hypertension. Mild coronary artery calcification. Small hiatal hernia. Liver: Normal. Biliary/Gallbladder: Gallbladder hydrops. Gallbladder wall edema. Pericholecystic inflammatory change . Cholelithiasis. Mild intrahepatic hepatic duct dilation, without evidence of obstructing stone or m ass, possibly reactive. Pancreas: No mass or duct dilation. Spleen: Splenic cysts or hemangiomas. Adrenals:1.6 cm indeterminate right adrenal nodule Kidneys: Simple left upper pole cyst. No suspicious mass, stone, or hydronephrosis. GI tract: Distal esophageal and gastric wall edema as can be seen with esophagitis/gastritis. Inflamm atory change at the gastric antrum, proximal duodenum, and hepatic flexure likely reactive. No small or large bowel dilation. Normal appendix. Mesentery/Peritoneum: No ascites, mass, or free air. Retroperitoneum: No mass. Atherosclerotic abdominal aortic and/or arterial calcifications. Pelvis: Pelvic organs are within normal limits. Soft Tissues: Soft tissues and body wall unremarkable. Bones: No acute osseous finding. IMPRESSION: Acute cholecystitis. Adjacent reactive inflammatory changes present in the gastric antrum, duodenum, and hepatic flexure. Reviewed, dictated and finalized at location K. [employer] PRODUCTS MANAGER IMPRESSION: Acute cholecystitis. Adjacent reactive inflammatory changes present in the manish cristina antrum, duodenum, and hepatic flexure.
--- NOTE | 2022-09-25 18:22 | ED.GENADULT ---
HPI - General Adult General Chief complaint: Nausea/Vomiting/Diarrhea Stated complaint: abdominal pain, back pain, N/V Time Seen by Provider: 09/25/22 17:50 History of Present Illness HPI narrative: 67-year-old female presenting to the emergency department for evaluation of nausea vomiting constipation since . Patient states that she went out to a [employer] restaurant and and since then has had diffuse abdominal pain with associated nausea vomiting. Patient states that her blood sugars have been running high and that she had not had a bowel movement until just earlier today. Patient reports upper abdominal pain. Patient states pain does not radiate to her back. Patient denies any prior history of gallbladder disease. Patient denies any prior history of diabetic ketoacidosis. Patient denies any history of small bowel obstruction. Patient does have a prior surgical history of a . Patient also had a recent endoscopy and colonoscopy in March. Patient is Ecuadorean-speaking and the hydrotechnical specialist junior was used. Related Data Home Medications Medication Instructions Recorded Confirmed atorvastatin 20 mg tablet 20 mg PO HS 03/23/22 03/23/22 gabapentin 300 mg capsule 300 mg PO TID 03/23/22 03/23/22 Allergies Allergy/AdvReac Type Severity Reaction Status Date / Time No Known Allergies Allergy Verified 09/25/22 15:32 Review of Systems Review of Systems: CONSTITUTIONAL: Denies fever, chills, or sweats. EYES: Denies visual changes, redness, or discharge. ENT: Denies rhinorrhea, congestion, sore throat, or otalgia. CARDIOVASCULAR: Denies chest pain, palpitations, or edema. RESPIRATORY: Denies cough or dyspnea. GASTROINTESTINAL: See HPI GENITOURINARY: Denies dysuria or hematuria. SKIN: Denies rash or itching. MUSCULOSKELETAL: Denies back pain, joint pain, or myalgia. NEUROLOGIC: Denies headache, numbness, or weakness. [facility] Past Medical History Medical History (Updated 09/25/22 @ 20:29 by Stu Garcia MD) Diabetes mellitus Elevated cholesterol Hyperlipidemia Left patella fracture Obesity Surgical History Surgical History Previous section Family History Family History Sibling Diabetes mellitus Grandparent Diabetes mellitus Social History Social History (Updated 03/24/22 @ 14:22 by Casi Conroy PA-C) Social History: lives with her boyfriend. states she does not have any family and wishes for her surrogate decision maker to be her friend at bedside Jasmina Saldana. She wishes to be a full code. 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 HEAD: normocephalic, atraumatic. EYES: PERRLA/EOMI, conjunctivae clear. NOSE: Normal no drainage THROAT: Pharynx clear, no exudate. NECK: Supple. No adenopathy, no masses. RESPIRATORY: Airway patent, respirations nonlabored. Clear to auscultation bilaterally, no rales, rhonchi, wheezing. CARDIOVASCULAR: Regular rate and rhythm without murmurs rubs or gallops. ABDOMINAL: Soft, nondistended, normal bowel sounds, diffuse upper abdominal tenderness to palpation MUSCULOSKELETAL: Moves all extremities. Strength/ROM intact, No edema, No calf tenderness. NEURO: Alert. Cranial nerves II through XII intact. Grossly intact SKIN: Warm, dry. Normal Color Course Course Emergency Course: CT scan did show evidence of acute cholecystitis. Patient does have a leukocytosis of 24. Patient blood sugar did improve from 459 to 280. Patient does have elevated AST ALT and alk phos. No elevation of bilirubin. CT showed no evidence
[2022-09-25 18:24] LABS: Hematocrit 38.2 % (37.0-47.0); Hemoglobin 12.1 g/dL (12.0-15.0); Mean Corpuscular HGB Conc 31.7 g/dl (32-36); Mean Corpuscular Volume 85.3 fl (80-100); Mean Platelet Volume 10.8 fl (7.4-10.4); Platelet Count Result 311 k/mm3 (150-375); Red Blood Count 4.48 M/mm3 (4.2-5.4); Red Cell Distribution Width 14.1 % (11.5-14.5)
[2022-09-25 18:35] LABS: Alanine Aminotransferase 99 U/L (6-35); Albumin Level 3.7 g/dL (3.5-5.1); Alkaline Phosphatase 506 U/L (38-126); Anion Gap 12 mmol/L (8-16); Aspartate Amino Transferase 241 U/L (14-36); Bilirubin,Total 1.3 mg/dL (0.2-1.3); Blood Urea Nitrogen 24 mg/dL (7-17); Calcium 8.2 mg/dL (8.4-10.2); Carbon Dioxide 22 mmol/L (22-30); Chloride 98 mmol/L (98-107); Estimated CRCL calculation 27 ml/min; Estimated Glomerular Filt Rate 32; Glucose 459 mg/dL (65-110); Potassium 4.8 mmol/L (3.4-5.0); Sodium 132 mmol/L (137-145)
[2022-09-25 18:46] LABS: Lymphocytes Percent Manual 5 % (18-44); Monocytes Percent Manual 5 % (3-9); Neutrophils Percent Manual 85 % (46-73)
[2022-09-25 18:47] LABS: Band Neutrophils Percent 5 % (0-6); Platelet Estimate Adequate (Adequate)
[2022-09-25] MEDS: ONDANSETRON INJ 4 MG/2 ML VIAL IV PUSH (18:54)
[2022-09-25] MEDS: HYDROmorphone HCL INJ (*CRX) 1 MG/ML SYR 0.5 MG IV PUSH (18:54)
[2022-09-25] MEDS: SODIUM CHLORIDE 0.9% IV 1,000 ML 999 ML IV CONT ×2 (18:55→19:36)
[2022-09-25 20:06] LABS: Glucose Point of Care 280 mg/dl (65-105)
[2022-09-25 21:30] LABS: Influenza A QL RT-PCR Negative (Negative); Influenza B QL RT-PCR Negative (Negative); SARS-CoV-2 RNA PCR Negative
--- NOTE | 2022-09-25 22:16 | PC.NURSE ---
Patient came to 3 Med-Surg at 21:10 on 09/25/2022
--- NOTE | 2022-09-25 22:34 | PM.IMHP ---
H&P: HPI History of Present Illness Date/Time: 09/25/22 22:34 Chief Complaint: Abdominal pain Narrative: This is a Moldovan-speaking 67-year-old female who came to the emergency room with complaints of abdominal pain. The patient came to the emergency department for evaluation of nausea vomiting constipation since . The patient went to a [employer] buffet on Monday and she had diffuse abdominal pain with the nausea and vomiting. She stated that her blood sugars have been running 5 and 400. She stated that she takes insulin and a couple pills. She was having difficulty urinating and difficulty having a bowel movement. However when she came up to 3rd floor she went to the bathroom and stated she had a bowel movement. The information was obtained through an earth moving machine operator. The patient stated that she has tried many things [id number] including [place] and lemon water. She was not able to take care of the discomfort on her own then that is why she came to the emergency room. The [employer] earth moving machine operator was used during the interview. Some information was also obtained from her old records. The patient stated that she has had upper and lower in at endoscopy in the past and had a history of a duodenal ulcer. Today her white count was 24.0. Sodium 132 and creatinine 1.6. Her baseline creatinine is normal. Her blood sugar was 149 and then 280. Calcium 8.2. AST is 241 ALT is 99 alkaline phosphatase 506. She is negative for influenza A/B and COVID. She was given Dilaudid, Zofran 2 L of IV fluid and started on Zosyn. CT of the abdomen was read as acute cholecystitis. Adjacent reactive inflammatory changes present the gas from [facility], duodenum and hepatic flexure. Surgery has been consulted and the plan is for surgery tomorrow. The patient is being admitted to observation status on the date of service of 09/25/2022. Review of Systems Review of Systems: See HPI All systems reviewed & are unremarkable except as noted in HPI and below Constitutional: Constitutional: Reports as per HPI and Reports no additional constitutional complaints Eyes: Eyes: Reports as per HPI and Reports no additional eye complaints ENT: Reports system reviewed and no additional complaints, except as documented and Reports Normal hearing present Cardiovascular: Cardiovascular: Reports no additional cardiovascular complaints Respiratory: Respiratory: Reports no additional respiratory complaints and Reports no additional respiratory complaints Gastrointestinal: Gastrointestinal: Reports as per HPI and Reports no additional gastrointestinal complaints Musculoskeletal: Musculoskeletal: Reports no additional musculoskeletal complaints Integumentary/Breasts: Skin/Breast: Reports system reviewed and no additional complaints, except as docu and Reports as per HPI Neurologic: Reports system reviewed and no additional complaints, except as documented, Reports as per HPI and Reports Normal hearing present Psychiatric: Psychiatric: Reports no additional psychiatric complaints and Reports as per HPI Endocrine: Endocrine: Reports no additional endocrine complaints Hematologic/Lymphatic: Hematologic/Lymphatic: Reports no additional hematologic/lymphatic complaints Allergic/Immunologic: Allergic/Immunologic: Reports no additional allergic/immunologic complaints [facility] Past Medical History Medical History Diabetes mellitus Elevated cholesterol Hyperlipidemia Left patella fracture Obesity Surgical History Surgical History (Updated 09/25/22 @ 22:45 by Mesha Corey NP) H/O: hysterectomy Previous section Family History Family History Sibling Diabetes mellitus Grandparent Diabetes mellitus Social History Social History (Updated 09/25/22 @ 22:45 by Mesha Corey NP) Social History: states she does not have any family
[2022-09-25] MEDS: SODIUM CHLORIDE 0.9% IV 1,000 ML 100 ML IV CONT (22:50)
[2022-09-26] VITALS (13 sets, daily range): BP systolic 101–134; BP diastolic 56–76; PULSE 70–90; RESP 16–25; TEMP 36.3–37.2; O2SAT 93–100
[2022-09-26 00:59] LABS: Glucose Point of Care 129 mg/dl (65-105)
[2022-09-26 05:32] LABS: Glucose Point of Care 82 mg/dl (65-105)
[2022-09-26 06:05] LABS: Lactic Acid Reflex 0.9 mmol/L (0.7-2.0)
[2022-09-26 06:09] LABS: Alanine Aminotransferase 98 U/L (6-35); Alkaline Phosphatase 349 U/L (38-126); Anion Gap 7 mmol/L (8-16); Aspartate Amino Transferase 169 U/L (14-36); Bilirubin,Total 0.8 mg/dL (0.2-1.3); Blood Urea Nitrogen 20 mg/dL (7-17); Calcium 7.3 mg/dL (8.4-10.2); Carbon Dioxide 20 mmol/L (22-30); Chloride 110 mmol/L (98-107); Estimated CRCL calculation 36 ml/min; Estimated Glomerular Filt Rate 49; Glucose 90 mg/dL (65-110); Lipase 18 U/L (23-300); Magnesium 2.5 mg/dL (1.6-2.3); Sodium 137 mmol/L (137-145)
[2022-09-26 06:14] LABS: Hemoglobin A1C 11.3 % (<5.7)
[2022-09-26] MEDS: SODIUM CHLORIDE 0.9% IV 1,000 ML 100 ML IV CONT (09:19)
[2022-09-26] MEDS: PANTOPRAZOLE SODIUM IV 40 MG VIAL IV PUSH ×2 (09:20→20:12)
--- NOTE | 2022-09-26 10:51 | PM.IMPN ---
Progress Note: A&P Assessment and Plan (1) Acute cholecystitis: Code(s): K81.0 - Acute cholecystitis Status: Acute Assessment and Plan: Patient presented with c/o abdominal pain, N/V, fever and chills for several days, CT abd/pelvis suggests acute cholecystitis with mild intrahepatic hepatic duct dilation. General surgery consulted and appreciate recommendations. Continue with IV Zosyn. blood cultures pending. NPO for possible surgery today. MRCP ordered and pending. Continue IV fluids, add dextrose to fluids as she reports taking her insulin last night. continue with analgesics. (2) Diabetes mellitus: Qualifiers: Diabetes mellitus type: type 2 Diabetes mellitus shelter insulin use: with shelter use Diabetes mellitus complication status: without complication Qualified Code(s): E11.9 - Type 2 diabetes mellitus without complications; Z79.4 - USP (current) use of insulin Code(s): E11.9 - Type 2 diabetes mellitus without complications Status: Acute Assessment and Plan: Chronic, uncontrolled. A1c 11% now, was 6.3% in March 2022 when she was last admitted. She reports taking Tradjenta and another small pill. She reports compliance with insulin therapy except for 48 hours this past week when she could not get out of bed. She does report switching from syringe to pen insulin, but does not think she is having complications. Accu-Cheks every 6 hours with sliding scale insulin with sliding scale insulin with hypoglycemic protocol Blood glucose 57 at noon. Will change to D5NS@100 mL/hour. Lantus 10 units at HS after surgery and when eating. Will attempt to obtain her PCPs recent office visit notes and labs to evaluate diabetes medications and glucose control prior to admission. (3) Hyperlipidemia: Qualifiers: Hyperlipidemia type: mixed hyperlipidemia Qualified Code(s): E78.2 - Mixed hyperlipidemia Code(s): E78.5 - Hyperlipidemia, unspecified Status: Chronic Assessment and Plan: Chronic. LFTs mildly elevated secondary to acute cholecystitis. Resume status when tolerating PO and LFTs return to normal. Plan CODE STATUS: FULL CODE Disposition: Observation, return home when tolerating diet. Time Spent With Patient Time with patient: 25 - 35 minutes Subjective Date/time seen: 09/26/22 10:51 Patient is Romansh-speaking only. Using an japanese interpreter service, she reports c/o aching abdominal pain and hunger. She reports fever and chills prior to admission and had not taken her insulin for at least 48 hours due to be so weak she could not get out of bed. She resumed her insulin yesterday, prior to admission. She occasionally checks her blood sugar at home, but thinks that her glucometer is not correct because it was fluctuating a bit and over 500 yesterday. She was seen by her PCP recently and told everything was okay. No nausea or vomiting today. Review of Systems Review of Systems: All systems reviewed & are unremarkable except as noted in HPI and below Exam Narrative: General: No acute distress.?Sitting up in bed Mental Status/Psych: Awake, alert and oriented to name. clear speech. Smiling. Cooperative. Skin: Skin fair, warm, dry and intact without rashes or lesions. Fair turgor.? HEENT: Normocephalic. Sclera is non-icteric. Pupils equal and round. Oral mucosa moist. improving dental tartar. Neck: Grossly normal. Heart: S1 and S2 regular rate and rhythm. No murmurs, gallops, or rubs auscultated. Chest: Respirations even and unlabored. Lung sounds clear to bilateral upper lobes and with scattered rhonchi bilateral lower lobes.? Poor inspiratory effort Abdomen: Soft, round and non-tender to palpation.? Bowel sounds present in all 4 quadrants. Extremities:? Grossly normal ROM. No edema, erythema, or tenderness to palpation. Radial and dorsalis pedis pulses bilaterally. Neurological: Cognitive delay. Sensation and movement intact al
--- NOTE | 2022-09-26 11:39 | PM.CNGS ---
Assessment and Plan Assessment and plan (1) Acute cholecystitis: Code(s): K81.0 - Acute cholecystitis Status: Acute Assessment and Plan: I have reviewed the CT and discussed the findings with the patient. She has evidence of acute cholecystitis. Her liver enzymes are slightly elevated but her bilirubin is normal. This is likely reactive due to the inflammation. I have recommended proceeding with urgent laparoscopic cholecystectomy, possible open. I discussed the procedure, risks, benefits, and alternatives. Questions were answered. Patient would like to proceed. (2) Diabetes mellitus: Code(s): E11.9 - Type 2 diabetes mellitus without complications Status: Acute (3) Elevated liver enzymes: Code(s): R74.8 - Abnormal levels of other serum enzymes Status: Acute History of Present Illness Consult details Consult date: 09/26/22 Reason for consult: other ( Cholecystitis) Narrative: this is a 67-year-old Bulgarian-speaking woman who I am asked to see for acute cholecystitis. The electronic semiconductor processor was used to discuss with the patient. She presented to the emergency department last night with abdominal pain that had been going on for the past 3 days. She states that she ate [place]ese food and began experiencing pain after this. She has not eaten very much for the past several days due to the constant pain. She also felt feverish and was having chills. She had never experienced anything like this before. She does have a prior history of an ulcer but states that this pain is different. Her pain is slightly improved this morning but she still does have some tenderness on exam. Review of Systems Review of Systems: All systems reviewed & are unremarkable except as noted in HPI and below Eyes: Eyes: Denies change in vision ENT: Denies hearing loss, Denies neck pain and Denies sore throat Cardiovascular: Cardiovascular: Denies chest pain and Denies dyspnea Respiratory: Respiratory: Denies cough, Denies dyspnea and Denies wheezing Gastrointestinal: Gastrointestinal: Reports as per HPI Genitourinary: Genitourinary: Denies hematuria and Denies dysuria Musculoskeletal: Musculoskeletal: Denies arthralgias, Denies joint swelling and Denies neck pain Allergic/Immunologic: Allergic/Immunologic: Denies wheezing [facility] Past Medical History Medical History (Updated 09/26/22 @ 11:50 by Adrian Fajardo DO) Diabetes mellitus Elevated cholesterol Hyperlipidemia Left patella fracture Obesity Surgical History Surgical History (Updated 09/25/22 @ 22:45 by Mesha Corey NP) H/O: hysterectomy Previous section Family History Family History Sibling Diabetes mellitus Grandparent Diabetes mellitus Social History Social History (Updated 09/25/22 @ 22:45 by Mesha Corey NP) Social History: states she does not have any family here and wishes for her surrogate decision maker to be her friend Jasmina Saldana. The patient told me that she has 7 children. Six R female and 1 is male. She tells me that she is and lives with the couple. She works for factory She wishes to be a full code. 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
[2022-09-26 11:51] LABS: Glucose Point of Care 61 mg/dl (65-105)
[2022-09-26 11:51] LABS: Glucose Point of Care 58 mg/dl (65-105)
[2022-09-26] MEDS: DEXTROSE 50% 25 GM/50 ML SYRINGE IV PUSH (11:53)
[2022-09-26 12:49] LABS: Glucose Point of Care 90 mg/dl (65-105)
--- NOTE | 2022-09-26 14:04 | WPDHPUPDATE1 ---
History and Physical Update Update Date/Time: 09/26/22 14:04 History and Physical has been reviewed, including an updated exam of the patient. There are NO changes in the patient's condition. Risks, benefits, and alternatives have been discussed and questions answered. Patient agrees to proceed with procedure.
--- NOTE | 2022-09-26 14:20 | PC.NURSE ---
pt to surgery via bed, brief report given to surgery RNs to transport
--- NOTE | 2022-09-26 14:41 | WPDANESEPPF ---
Anes - Initial Pre Proc Eval Procedure: Operation Date: 09/26/22 15:45 Proposed Procedures p Laparoscopic Cholecystectomy - Adrian Fajardo DO Date/Time: 09/26/22 14:41 Surgeon: Anatoliy Camacho DO Pre Op Diagnosis: acute cholecystitis Patient Data Age: 67 Gender: F Height: 1.6 m Weight: 66.2 kg Last Vital Signs Temp 37.1 C 09/26/22 13:52 Pulse 82 09/26/22 13:52 Resp 18 09/26/22 13:52 BP 113/56 L 09/26/22 13:52 Pulse Ox 93 09/26/22 13:52 O2 Del Method Room Air 09/26/22 08:00 Allergies Allergy/AdvReac Type Severity Reaction Status Date / Time No Known Allergies Allergy Verified 09/25/22 15:32 Home Medications Medication Instructions Recorded Confirmed Type atorvastatin 20 mg tablet 20 mg PO HS 03/23/22 09/25/22 History gabapentin 300 mg capsule 300 mg PO TID 03/23/22 09/25/22 History pantoprazole 40 mg tablet,delayed 40 mg PO Q12HR 30 days #60 tabs 03/25/22 09/25/22 Rx release alogliptin 25 mg tablet (Nesina) 25 mg PO 1XD 09/25/22 09/25/22 History canagliflozin 100 mg tablet 100 mg PO 1XD 09/25/22 09/25/22 History (Invokana) ferrous sulfate 325 mg (65 mg 325 mg PO BIDWM 09/25/22 09/25/22 History iron) tablet insulin aspar prot-insulin aspart 20 unit subcut 1XD 09/25/22 09/25/22 History 100 unit/mL (70-30) subcutaneous pen (Novolog Mix 70-30FlexPen U-100) insulin detemir U-100 100 unit/mL 10 unit subcut 1XD 09/25/22 09/25/22 History (3 mL) subcutaneous pen (Levemir FlexTouch U-100 Insulin) Laboratory Tests 09/25/22 09/25/22 09/25/22 18:17 18:17 20:03 WBC 24.0 K/mm3 H K/mm3 (4.5-10.0) RBC 4.48 M/mm3 M/mm3 (4.2-5.4) Hgb 12.1 g/dL g/dL (12.0-15.0) Hct 38.2 % % (37.0-47.0) MCV 85.3 fl fl (80-100) MCH 27.0 pg pg (26-34) MCHC 31.7 g/dl L g/dl (32-36) RDW 14.1 % % (11.5-14.5) Plt Count 311 k/mm3 k/mm3 (150-375) MPV 10.8 fl H fl (7.4-10.4) Immature Gran % (Auto) Not Reportable Neut % (Auto) Not Reportable Lymph % (Auto) Not Reportable [place] % (Auto) Not Reportable Eos % (Auto) Not Reportable Baso % (Auto) Not Reportable Lymph # (Auto) Not Reportable [place] # (Auto) Not Reportable Eos # (Auto) Not Reportable Baso # (Auto) Not Reportable Abs Immat Gran (auto) Not Reportable Absolute Neuts (auto) Not Reportable Absolute Nucleated RBC Not Reportable Neutrophils % (Manual) 85 % H % (46-73) Band Neutrophils % 5 % % (0-6) Lymphocytes % (Manual) 5 % L % (18-44) Monocytes % (Manual) 5 % % (3-9) Nucleated RBC % Not Reportable Abs Neuts (Manual) 21.60 K/mm3 H K/mm3 (1.7-7.2) Abs Lymphs (Manual) 1.20 K/mm3 K/mm3 (1.1-4.5) Abs Monocytes (Manual) 1.20 K/mm3 H K/mm3 (0.1-0.90) Platelet Estimate Adequate (Adequate) Schistocytes Not Reportable Sodium 132 mmol/L L mmol/L (137-145) Potassium 4.8 mmol/L mmol/L (3.4-5.0) Chloride 98 mmol/L mmol/L (98-107) Carbon Dioxide 22 mmol/L mmol/L (22-30) Anion Gap 12 mmol/L mmol/L (8-16) BUN 24 mg/dL H D mg/dL (7-17) Creatinine 1.60 mg/dL H mg/dL (0.7-1.0) Estim Creat Clear Calc 27 ml/min ml/min Estimated GFR 32 L (59 - ) Glucose 459 mg/dL H mg/dL (65-110) POC Capillary Glucose 280 mg/dl H mg/dl (65-105) Hemoglobin A1c Lactic Acid Calcium 8.2 mg/dL L mg/dL (8.4-10.2) Magnesium Total Bilirubin 1.3 mg/dL mg/dL (0.2-1.3) AST 241 U/L H U/L (14-36) ALT 99 U/L H U/L (6-35) Alkaline Phosphatase 506 U/L H U/L (38-1
[2022-09-26] MEDS: LACTATED RINGERS 1,000 ML 30 ML IV CONT ×2 (15:00→16:59)
--- NOTE | 2022-09-26 16:58 | W.PM.PROC2 ---
Procedure Note - Detailed Date of Procedure 09/26/22 Pre-op Diagnosis acute calculous cholecystitis Post-op Diagnosis Same Procedure Performed Laparoscopic Cholecystectomy Surgeon Adrian Fajardo, DO Anesthesia General and Local (0.5% bupivacaine) Indications This is a 67-year-old woman who presented to the emergency department overnight with right upper quadrant abdominal pain for the past 4 days. She states that her pain started after eating [place] food. She has had constant pain since. She was also experiencing some feverish feelings and chills. She had never had symptoms like this in the past. She presented with a high white blood count and slightly elevated liver enzymes. Discussions were made with the patient about treatment options and decision was made to proceed with urgent laparoscopic cholecystectomy, possible open. Findings Laparoscopic cholecystectomy was performed. The gallbladder was tense and dilated and contained many small to medium sized gallstones. The neck of the gallbladder was indurated, but the cystic duct appeared normal in size. There appeared to be a stone stuck at the neck of the gallbladder. This was causing gallbladder hydrops. The gallbladder wall was very indurated. No other significant abnormalities were noted. The gallbladder was removed and sent to the lab for pathology. Description of Procedure Procedure as well as risks, benefits, and alternatives were discussed with patient. Written consent was obtained and placed in chart prior to procedure. The patient was brought back to surgical suite. Patient was placed in supine position on operating table. Time-out was done to confirm patient and procedure. Patient was then intubated by the anesthesia department. Abdomen was prepped and draped in sterile fashion using chlorhexidine prep. 0.5% bupivacaine with epinephrine was infiltrated at each site of incision. A 5 millimeter incision was made near the umbilicus, and a 5 millimeter Optiview trocar was advanced through the abdominal layers under direct visualization. Once inside the abdominal cavity, carbon dioxide was insufflated to create a pneumoperitoneum. The camera was inserted and the abdomen was inspected. No immediate abnormalities were identified. The patient was placed in reverse Trendelenburg position and rotated slightly to the left. An 11 millimeter incision was made in the subxiphoid region, and an 11 millimeter trocar was inserted under direct visualization. Two 5 millimeter incisions were made in the right upper quadrant, and two 5 millimeter trocars were inserted under direct visualization. The gallbladder was identified and grasped at the fundus and retracted superiorly. It was then grasped at the infundibulum retracted laterally. Careful dissection around the neck of the gallbladder was performed using blunt dissection with a [place] grasper and hook electrocautery. The cystic duct was identified, and a window was created behind it. The cystic artery was also identified and a window was created behind it. The critical view of safety was identified, visualizing the cystic duct running directly into the neck of the gallbladder, and the cystic artery running directly into the wall of the gallbladder. A 5 millimeter clip tax appraiser was then used to place 2 clips proximally and 1 clip distally on both the cystic duct and cystic artery. They were then both transected using endoscopic scissors. Once safely away from the jere hepatitis, the gallbladder was dissected free from the liver bed using hook electrocautery. Hemostasis was achieved along the way. The gallbladder was removed completely and then removed through the subxiphoid port. The liver bed was then inspected. Hemostasis appeared adequate, and our clips appeared secure. The area was gently irrigated with sterile saline. No other abnormalities were seen. The patient was flattened out in bed, and 1 final inspection was made around the a
[2022-09-26 17:08] LABS: Glucose Point of Care 78 mg/dl (65-105)
[2022-09-26] MEDS: fentaNYL CITRATE INJ (*CRX) 100 MCG/2 ML VIAL 25 MCG IV PUSH ×2 (17:40→17:45)
--- NOTE | 2022-09-26 18:33 | PC.NURSE ---
pt returned from surgery via bed, reviewed plan of care and MD orders
[2022-09-26] MEDS: DEXTROSE 5%/0.9% SOD CHL 1,000 ML 100 ML IV CONT (18:45)
[2022-09-26] MEDS: INSULIN GLARGINE (*BKC) 100 UNITS/ML 10 UNITS SUB-Q (20:11)
[2022-09-26] MEDS: HYDROcodone/acetaminophen (*CRX) 5-325 MG TABLET 1 TAB PO (20:17)
[2022-09-26 20:27] LABS: Glucose Point of Care 176 mg/dl (65-105)
[2022-09-27 00:39] VITALS: BP 115/60; PULSE 78; RESP 20; TEMP 36.4; O2SAT 95
[2022-09-27 04:00] VITALS: BP 125/67; PULSE 85; RESP 20; TEMP 36.5; O2SAT 93
[2022-09-27] MEDS: DEXTROSE 5%/0.9% SOD CHL 1,000 ML 100 ML IV CONT (05:19)
[2022-09-27 05:43] LABS: Appearance Urine Clear (Clear); Bilirubin Urine 1+ (Negative); Blood Urine Trace-lysed (Negative); Color Urine Yellow (Yellow); Glucose Urine UA 3+ mg/dL (Negative); Ketones Urine 2+ mg/dL (Negative); Leukocyte Esterase Ur Negative LEU/UL (NEGATIVE); Nitrate Urine Negative (Negative); Protein Urine 1+ mg/dL (Negative); pH Urine 5.5 (5.0-9.0)
[2022-09-27 05:48] LABS: Bacteria Urine Trace /hpf; Squamous Epithelial Cell Urine Few /hpf (Few)
[2022-09-27 05:49] LABS: Add Urine Microscopic? YES
[2022-09-27 06:38] LABS: Basophils Absolute Auto 0.1 K/mm3 (0.0-0.1); Basophils Percent Auto 0.5 % (0.2-1.2); Eosinophils Absolute Auto 0.1 K/mm3 (0-0.3); Eosinophils Percent Auto 0.4 % (0-4.4); Hematocrit 32.3 % (37.0-47.0); Hemoglobin 10.3 g/dL (12.0-15.0); Immature Granulocyte Absolute 0.13 K/mm3 (0.00-0.031); Immature Granulocyte Percent A 1.1 % (0-0.5); Lymphocytes Absolute Auto 1.31 K/mm3 (0.9-3.2); Lymphocytes Percent Auto 11.6 % (18.3-44.2); Mean Corpuscular HGB Conc 31.9 g/dl (32-36); Mean Corpuscular Hemoglobin 26.7 pg (26-34); Mean Corpuscular Volume 83.7 fl (80-100); Mean Platelet Volume 10.8 fl (7.4-10.4); Monocytes Absolute Auto 0.8 K/mm3 (0.1-0.6); Monocytes Percent Auto 7.1 % (2.6-8.5); Neutrophils Percent Auto 79.3 % (45.5-73.1); Platelet Count Result 271 k/mm3 (150-375); Red Blood Count 3.86 M/mm3 (4.2-5.4); Red Cell Distribution Width 14.7 % (11.5-14.5); White Blood Count 11.3 K/mm3 (4.5-10.0)
[2022-09-27 07:01] LABS: Alanine Aminotransferase 75 U/L (6-35); Albumin Level 2.7 g/dL (3.5-5.1); Alkaline Phosphatase 422 U/L (38-126); Anion Gap 10 mmol/L (8-16); Aspartate Amino Transferase 88 U/L (14-36); Bilirubin,Total 0.7 mg/dL (0.2-1.3); Blood Urea Nitrogen 13 mg/dL (7-17); Calcium 6.9 mg/dL (8.4-10.2); Carbon Dioxide 17 mmol/L (22-30); Chloride 110 mmol/L (98-107); Estimated CRCL calculation 43 ml/min; Estimated Glomerular Filt Rate > 60; Glucose 173 mg/dL (65-110); Potassium 3.6 mmol/L (3.4-5.0); Sodium 137 mmol/L (137-145)
[2022-09-27 07:37] LABS: Glucose Point of Care 176 mg/dl (65-105)
[2022-09-27 08:00] VITALS: BP 122/68; PULSE 76; RESP 18; TEMP 36.6; O2SAT 93
[2022-09-27] MEDS: PANTOPRAZOLE SODIUM IV 40 MG VIAL IV PUSH ×2 (09:12→20:27)
[2022-09-27] MEDS: HYDROcodone/acetaminophen (*CRX) 7.5-325 MG TABLET 1 TAB PO (09:19)
[2022-09-27 11:28] LABS: Glucose Point of Care 306 mg/dl (65-105)
--- NOTE | 2022-09-27 11:35 | WPDANESPN ---
Anes - Prog Note Post-Op Date/Time: 09/27/22 11:35 Vital Signs: Last Vital Signs Temp 36.6 C 09/27/22 08:00 Pulse 76 09/27/22 08:00 Resp 18 09/27/22 08:00 BP 122/68 09/27/22 08:00 Pulse Ox 93 09/27/22 08:00 O2 Del Method Room Air 09/26/22 20:00 O2 Flow Rate 3 09/26/22 18:00 Pain Score (VAS): 0 I/O: Intake & Output 09/26/22 09/27/22 09/27/22 23:59 07:59 15:59 Intake Total 350 1350 240 Output Total 1200 400 400 Balance -850 950 -160 Laboratory Tests 09/27/22 06:04 09/27/22 06:04 09/26/22 09/26/22 09/26/22 11:43 11:49 12:28 WBC RBC Hgb Hct MCV MCH MCHC RDW Plt Count MPV Immature Gran % (Auto) Neut % (Auto) Lymph % (Auto) [place] % (Auto) Eos % (Auto) Baso % (Auto) Lymph # (Auto) [place] # (Auto) Eos # (Auto) Baso # (Auto) Abs Immat Gran (auto) Absolute Neuts (auto) Absolute Nucleated RBC Nucleated RBC % Sodium Potassium Chloride Carbon Dioxide Anion Gap BUN Creatinine Estim Creat Clear Calc Estimated GFR Glucose POC Capillary Glucose 58 L* 61 L 90 Calcium Total Bilirubin AST ALT Alkaline Phosphatase Total Protein Albumin Urine Color Urine Appearance Urine pH Ur Specific [place] Urine Protein Urine Glucose (UA) Urine Ketones Ur Blood (Man) Urine Nitrate Urine Bilirubin Urine Urobilinogen Ur Leukocyte Esterase Urine RBC Urine WBC Ur Squamous Epith Cells Urine Bacteria 09/26/22 09/26/22 09/27/22 17:04 20:10 05:16 WBC RBC Hgb Hct MCV MCH MCHC RDW Plt Count MPV Immature Gran % (Auto) Neut % (Auto) Lymph % (Auto) [place] % (Auto) Eos % (Auto) Baso % (Auto) Lymph # (Auto) [place] # (Auto) Eos # (Auto) Baso # (Auto) Abs Immat Gran (auto) Absolute Neuts (auto) Absolute Nucleated RBC Nucleated RBC % Sodium Potassium Chloride Carbon Dioxide Anion Gap BUN Creatinine Estim Creat Clear Calc Estimated GFR Glucose POC Capillary Glucose 78 176 H Calcium Total Bilirubin AST ALT Alkaline Phosphatase Total Protein Albumin Urine Color Yellow Urine Appearance Clear Urine pH 5.5 Ur Specific [place] 1.010 Urine Protein 1+ H Urine Glucose (UA) 3+ H Urine Ketones 2+ H Ur Blood (Man) Trace-lysed Urine Nitrate Negative Urine Bilirubin 1+ H Urine Urobilinogen 1.0 Ur Leukocyte Esterase Negative Urine RBC 3-5 H Urine WBC 10-15 H Ur Squamous Epith Cells Few Urine Bacteria Trace 09/27/22 09/27/22 09/27/22 06:04 06:04 07:31 WBC 11.3 H RBC 3.86 L Hgb 10.3 L Hct 32.3 L MCV 83.7 MCH 26.7 MCHC 31.9 L RDW 14.7 H Plt Count 271 MPV 10.8 H Immature Gran % (Auto) 1.1 H Neut % (Auto) 79.3 H Lymph % (Auto) 11.6 L [place] % (Auto) 7.1 Eos % (Auto) 0.4 Baso % (Auto) 0.5 Lymph # (Auto) 1.31 [place] # (Auto) 0.8 H Eos # (Auto) 0.1 Baso # (Auto) 0.1 Abs Immat Gran (auto) 0.13 H Absolute Neuts (auto) 9.0 H Absolute Nucleated RBC 0.0 Nucleated RBC % 0.0 Sodium 137 Potassium 3.6 Chloride 110 H Carbon Dioxide 17 L Anion Gap 10 BUN 13 D Creatinine 0.90 Estim Creat Clear Calc 43 Estimated GFR > 60 Glucose 173 H POC Capillary Glucose 176 H Calcium 6.9 L Total Bilirubin 0.7 AST 88 H ALT 75 H Alkaline Phosphatase 422 H Total Protein 6.0 L Albumin 2.7 L Urine Color Urine Appearance Urine pH Ur Specific [place] Urine Protein Urine Glucose (UA) Urine Ketones Ur Blood (Man) Urine Nitrate Urine Bilirubin Urine Urobilinogen Ur Leukocyte Esterase Urine RBC Urine WBC Ur Squamous Epith Cells Urine Bacteria 09/27/22 11:22 WB
[2022-09-27 11:59] VITALS: BP 133/81; PULSE 92; RESP 18; TEMP 36.6; O2SAT 83
--- NOTE | 2022-09-27 12:31 | PM.PNGS ---
Progress Note: A&P Assessment and Plan (1) Acute cholecystitis: Code(s): K81.0 - Acute cholecystitis Status: Acute Assessment and Plan: Doing well post-op day #1. Advance to low fat diet. Encouraged increasing activity as tolerated. Okay from our standpoint to discharge the patient when okay with the primary service. Follow-up in [address] Fajardo. (2) Diabetes mellitus: Qualifiers: Diabetes mellitus type: type 2 Diabetes mellitus detention insulin use: with detention use Diabetes mellitus complication status: without complication Qualified Code(s): E11.9 - Type 2 diabetes mellitus without complications; Z79.4 - nursing home (current) use of insulin Code(s): E11.9 - Type 2 diabetes mellitus without complications Status: Acute (3) Elevated liver enzymes: Code(s): R74.8 - Abnormal levels of other serum enzymes Status: Acute Assessment and Plan: Trending down. Plan I have discussed the patient's case and plan of care with Dr. Fajardo. Subjective Subjective Date/Time Seen: 09/27/22 12:31 Post Op day: 1 (laparoscopic cholecystectomy) Patient reports: tolerating liquids well, flatus and afebrile Interval history: Patient seen and examined. The [employer] cofounder was used during our entire conversation and my evaluation (Rosalee #[id number]). She is feeling very sore at the incision but no other specific complaints. Tolerating liquids well. She has been up and walked to the bathroom with assistance. Exam Const: General: comfortable, no acute distress and awake Orientation/consciousness: patient oriented x3 GI: Inspection: non-distended and incision (incisions dry and intact) GI Palp: Yes Soft to palpation and Yes Tenderness to palpation present (GI) (incisional) Auscultation: normal bowel sounds Neuro: General: moves all extremities and no focal motor deficits Extrem: General: no edema Psych: Mental Status: mental status grossly normal Insight: Good insight present (Psych) Objective Data Vital Signs Vital Signs: Vital Signs - 24 hr 09/26/22 13:52 09/26/22 14:29 09/26/22 16:59 Temperature 98.8 F 99.0 F 98.1 F Pulse Rate 82 73 90 Respiratory Rate 18 16 20 Blood Pressure 113/56 L 124/58 L 124/73 Pulse Oximetry 93 99 100 Oxygen Delivery Room Air Simple Face Mask Oxygen Flow Rate 6 09/26/22 17:13 09/26/22 17:30 09/26/22 17:45 Temperature Pulse Rate 87 83 80 Respiratory Rate 24 H 25 H 20 Blood Pressure 134/74 121/76 115/66 Pulse Oximetry 100 95 98 Oxygen Delivery Simple Face Mask Simple Face Mask Nasal Cannula Oxygen Flow Rate 6 6 3 09/26/22 18:00 09/26/22 19:03 09/26/22 19:18 Temperature 97.4 F L 97.6 F Pulse Rate 78 77 70 Respiratory Rate 20 18 18 Blood Pressure 122/72 115/62 110/62 Pulse Oximetry 99 97 98 Oxygen Delivery Nasal Cannula Oxygen Flow Rate 3 09/26/22 19:47 09/26/22 20:55 09/26/22 20:00 Temperature 97.5 F L 97.7 F Pulse Rate 77 81 Respiratory Rate 18 20 Blood Pressure 117/57 L 122/61 Pulse Oximetry 95 98 98 Oxygen Delivery Room Air Oxygen Flow Rate 09/27/22 00:39 09/27/22 04:00 09/27/22 08:00 Temperature 97.5 F L 97.7 F 97.8 F Pulse Rate 78 85 76 Respiratory Rate 20 20 18 Blood Pressure 115/60 125/67 122/68 Pulse Oximetry 95 93 93 Oxygen Delivery Oxygen Flow Rate 09/27/22 08:00 09/27/22 11:59 Temperature 97.8 F Pulse Rate 76 92 Respiratory Rate 18 18 Blood Pressure 133/81 Pulse Oximetry 93 83 L Oxygen Delivery Room Air Oxygen Flow Rate Intake/Output Intake/Output: Intake & Output 09/24/22 09/25/22 09/26/22 09/27/22 23:59 23:59 23:59 23:59 Intake Total 2049 1500 1590 Output Total 1200 800 Balance 0 300 790 Meds/Results Medications: Active Medications Generic Name Dose Route Start Last Admin Trade Name Freq PRN Reason Stop Dose Admin Hydrocodone Bitart/Acetaminophen 1 tab 09/26/22 18:09 09/26/22 20:17 Hydrocodone/Acetaminophe
[2022-09-27] MEDS: INSULIN ASPART (*BKC) 100 UNITS/ML SUB-Q (12:57)
--- NOTE | 2022-09-27 13:50 | PM.IMPN ---
Progress Note: A&P Assessment and Plan (1) Acute cholecystitis: Code(s): K81.0 - Acute cholecystitis Status: Acute Assessment and Plan: Patient presented with c/o abdominal pain, N/V, fever and chills for several days, CT abd/pelvis suggests acute cholecystitis with mild intrahepatic hepatic duct dilation. General surgery consulted and s/p lap lise 09/25/22. On IV Zosyn and antibiotics per surgical team. blood cultures Negative to date. Surgery advancing diet as tolerated to low fat. Saline lock IV fluids. Continue with analgesics. Encourage ambulation. (2) Diabetes mellitus: Qualifiers: Diabetes mellitus complication status: without complication Diabetes mellitus long term care phlebotomist insulin use: with long term care phlebotomist use Diabetes mellitus type: type 2 Qualified Code(s): E11.9 - Type 2 diabetes mellitus without complications; Z79.4 - snf (current) use of insulin Code(s): E11.9 - Type 2 diabetes mellitus without complications Status: Acute Assessment and Plan: Chronic, uncontrolled. A1c 11% now, was 6.3% in March 2022 when she was last admitted. She reports taking Tradjenta and another small pill. She reports compliance with insulin therapy except for 48 hours this past week when she could not get out of bed. She does report switching from syringe to pen insulin, but does not think she is having complications. Accu-Cheks AC/HS with sliding scale insulin and with hypoglycemic protocol. 09/26/22 Blood glucose 57 at noon while NPO. Changed to D5NS@100 mL/hour that was stopped 09/27 in am. Continued on Lantus 10 units at HS. Resume NPH 70/30 20 units with breakfast. ?A1c falsely elevated. Awaiting PCPs recent office visit notes and labs to evaluate diabetes medications and glucose control prior to admission. (3) Hyperlipidemia: Qualifiers: Hyperlipidemia type: mixed hyperlipidemia Qualified Code(s): E78.2 - Mixed hyperlipidemia Code(s): E78.5 - Hyperlipidemia, unspecified Status: Chronic Assessment and Plan: Chronic. LFTs mildly elevated secondary to acute cholecystitis. Resume status when tolerating PO and LFTs return to normal. Plan CODE STATUS: FULL CODE Disposition: Observation, return home when tolerating diet. Time Spent With Patient Time with patient: 15 - 25 minutes Subjective Date/time seen: 11/22/22 13:50 She c/o slight dizziness this afternoon. Nursing reports she recently had opioid pain medication. She denies vision changes, slurred speech, unilateral extremity weakness or paresthesia. She states the dizziness comes and goes. She has been tolerating liquids and is awaiting solid food. She reports her roommate is not home until tomorrow and she has no way of getting into her home. Information was obtained via interpreting service. Review of Systems Review of Systems: All systems reviewed & are unremarkable except as noted in HPI and below Exam Narrative: General: No acute distress.?Ly in bed Mental Status/Psych: Awake, alert and oriented at baseline. clear speech. [place]-speaking. Cooperative. Skin: Skin fair, warm, dry without rashes or lesions. Fair turgor.?Lap sites x3 with surgical glue, no erythema, edema or discharge. HEENT: Normocephalic. Sclera is non-icteric. Pupils equal and round. Oral mucosa moist. Neck: Grossly normal. Heart: S1 and S2 regular rate and rhythm. No murmurs, gallops, or rubs auscultated. Chest: Respirations even and unlabored. Lung sounds clear to bilateral upper lobes and with scattered rhonchi bilateral lower lobes.? Poor inspiratory effort Abdomen: Soft, round and non-tender to palpation.? Bowel sounds hypoactive in all 4 quadrants. Extremities:? Grossly normal ROM. No edema, erythema, or tenderness to palpation. Radial and dorsalis pedis pulses +2 bilaterally. Neurological: No focal deficits. Sensation intact all extremities. No clonus, tremors or fasciculations. CN 2-12 grossly intact. Gait and DTR not tested.
[2022-09-27 16:00] VITALS: BP 143/86; PULSE 82; RESP 18; O2SAT 90
[2022-09-27 16:11] LABS: Glucose Point of Care 154 mg/dl (65-105)
[2022-09-27 20:00] VITALS: BP 122/72; PULSE 82; RESP 14; TEMP 36.8; O2SAT 93
[2022-09-27] MEDS: INSULIN GLARGINE (*BKC) 100 UNITS/ML 10 UNITS SUB-Q (20:27)
[2022-09-27 20:36] LABS: Glucose Point of Care 173 mg/dl (65-105)
[2022-09-28] VITALS: BP 147/81; PULSE 77; RESP 14; TEMP 36.1; O2SAT 93
[2022-09-28 04:00] VITALS: BP 158/82; PULSE 75; RESP 14; TEMP 36.1; O2SAT 93
[2022-09-28 05:28] LABS: Glucose Point of Care 91 mg/dl (65-105)
[2022-09-28 07:22] LABS: Alanine Aminotransferase 75 U/L (6-35); Albumin Level 3.7 g/dL (3.5-5.1); Alkaline Phosphatase 640 U/L (38-126); Anion Gap 12 mmol/L (8-16); Aspartate Amino Transferase 62 U/L (14-36); Bilirubin,Total 0.7 mg/dL (0.2-1.3); Blood Urea Nitrogen 9 mg/dL (7-17); Calcium 8.3 mg/dL (8.4-10.2); Carbon Dioxide 21 mmol/L (22-30); Chloride 108 mmol/L (98-107); Estimated CRCL calculation 43 ml/min; Estimated Glomerular Filt Rate > 60; Glucose 102 mg/dL (65-110); Potassium 3.9 mmol/L (3.4-5.0); Sodium 141 mmol/L (137-145)
[2022-09-28 07:26] LABS: Basophils Absolute Auto 0.1 K/mm3 (0.0-0.1); Basophils Percent Auto 0.8 % (0.2-1.2); Eosinophils Absolute Auto 0.1 K/mm3 (0-0.3); Eosinophils Percent Auto 1.1 % (0-4.4); Hematocrit 40.7 % (37.0-47.0); Hemoglobin 12.7 g/dL (12.0-15.0); Immature Granulocyte Percent A 4.6 % (0-0.5); Lymphocytes Absolute Auto 1.87 K/mm3 (0.9-3.2); Lymphocytes Percent Auto 17.3 % (18.3-44.2); Mean Corpuscular HGB Conc 31.2 g/dl (32-36); Mean Corpuscular Hemoglobin 26.9 pg (26-34); Mean Corpuscular Volume 86.2 fl (80-100); Mean Platelet Volume 10.9 fl (7.4-10.4); Monocytes Absolute Auto 0.8 K/mm3 (0.1-0.6); Monocytes Percent Auto 6.9 % (2.6-8.5); Neutrophils Absolute Auto 7.5 K/mm3 (1.3-6.7); Neutrophils Percent Auto 69.3 % (45.5-73.1); Platelet Count Result 321 k/mm3 (150-375); Red Blood Count 4.72 M/mm3 (4.2-5.4); Red Cell Distribution Width 14.8 % (11.5-14.5); White Blood Count 10.8 K/mm3 (4.5-10.0)
[2022-09-28 07:53] LABS: Glucose Point of Care 94 mg/dl (65-105)
[2022-09-28 08:00] VITALS: BP 154/77; PULSE 69; RESP 16; TEMP 36.4; O2SAT 99
[2022-09-28] MEDS: PANTOPRAZOLE SODIUM IV 40 MG VIAL IV PUSH (08:50)
[2022-09-28 12:00] VITALS: BP 154/77; PULSE 73; RESP 16; TEMP 36.5; O2SAT 99
[2022-09-28 12:05] LABS: Glucose Point of Care 162 mg/dl (65-105)
[2022-09-28] MEDS: IBUPROFEN 600 MG TABLET PO (12:58)
--- NOTE | 2022-09-28 14:44 | PM.DS ---
DS: Admitting Diagnosis Discharge Date 09/28/2022 Admitting Diagnosis acute cholecystitis DS: Discharge Diagnosis Discharge Diagnosis (1) Acute cholecystitis: Code(s): K81.0 - Acute cholecystitis Status: Acute (2) Diabetes mellitus: Qualifiers: Diabetes mellitus complication status: without complication Diabetes mellitus fci insulin use: with long term care phlebotomist use Diabetes mellitus type: type 2 Qualified Code(s): E11.9 - Type 2 diabetes mellitus without complications; Z79.4 - skilled nursing (current) use of insulin Code(s): E11.9 - Type 2 diabetes mellitus without complications Status: Acute (3) Hyperlipidemia: Qualifiers: Hyperlipidemia type: mixed hyperlipidemia Qualified Code(s): E78.2 - Mixed hyperlipidemia Code(s): E78.5 - Hyperlipidemia, unspecified Status: Chronic Plan CODE STATUS: FULL CODE Disposition: Observation, return home when tolerating diet. DS: Summary Hospital Course Reason for hospitalization: acute cholecystitis Hospital Course: Patient presents to the ER on 09/25/2022 with complaints of nausea vomiting. patient has a history of uncontrolled diabetes, hyperlipidemia and obesity. Patient is a non-Tajik speaking patient and his primary language is Nigerien. We were able to use Translating junior. patient has a medical history of diabetes, elevated cholesterol, hyperlipidemia, and obesity. patient attempted at home remedies for her nausea, vomiting, and abdominal pain with no success. patient was seen by surgery and surgery was conducted on 09/26/2022. patient diet was advanced to a low-fat diet and patient was able to tolerate it well. Patient unable to go home on 09/27/2022 due to lack of transportation. Today patient had some mild discomfort in her epigastric and right upper quadrant. Patient denies fever, N/V, chest pain, shortness of breath, lower extremity edema. Patient able to be discharged today per surgeon and will follow up in 2 weeks. Patient able to get a ride home today from one of her children but has to wait until they are off of work. Status at Discharge Functional status at discharge: independent ambulation Overall status at discharge: patient is progressing back to baseline Time Spent with Patient Time attestation: Total time spent providing and/or coordinating discharge services: Time spent: Greater than 30 minutes Exam Narrative: GENERAL: Comfortable, no acute distress HENMT: moist mucous membranes EYES: EOM intact b/l NECK: no lymphadenopathy RESPIRATORY: clear to auscultation CARDIO: RRR GI: soft, epigastric and right upper quadrant tenderness, bowel sounds presentl; well-healing incisions that are dry and intact on the abdomen SKIN: no rashes EXTREMITIES: no edema, redness or tenderness DS: Data Data Completed and Pending Pending studies at discharge: Pending at discharge 09/26/22 16:25 Surgical [PTH] Routine Labs on day of discharge: Labs from last 24 hours 09/28/22 09/28/22 09/28/22 12:02 07:49 06:38 WBC RBC Hgb Hct MCV MCH MCHC RDW Plt Count MPV Immature Gran % (Auto) Neut % (Auto) Lymph % (Auto) [place] % (Auto) Eos % (Auto) Baso % (Auto) Lymph # (Auto) [place] # (Auto) Eos # (Auto) Baso # (Auto) Abs Immat Gran (auto) Absolute Neuts (auto) Absolute Nucleated RBC Nucleated RBC % Sodium 141 Potassium 3.9 Chloride 108 H Carbon Dioxide 21 L Anion Gap 12 BUN 9 Creatinine 0.90 Estim Creat Clear Calc 43 Estimated GFR > 60 Glucose 102 POC Capillary Glucose 162 H 94 Calcium 8.3 L Total Bilirubin 0.7 AST 62 H ALT 75 H Alkaline Phosphatase 640 H Total Protein 8.0 Albumin 3.7 09/28/22 09/28/22 09/27/22 06:38 05:25 20:26 WBC 10.8 H RBC 4.72 Hgb 12.7 Hct 40.7 MCV 86.2 MCH 26.9 MCHC 31.2 L RDW 14.8 H Plt Coun
--- NOTE | 2022-09-28 16:11 | PM.PNGS ---
Progress Note: A&P Assessment and Plan (1) Acute cholecystitis: Code(s): K81.0 - Acute cholecystitis Status: Acute Assessment and Plan: Continuing to improve on postop day 2. Okay to discharge home today. Follow up in office in 2 weeks. Subjective Subjective Date/Time Seen: 09/28/22 16:11 Interval history: Pain controlled. Tolerating diet. Does not like the bland low-fat diet. Exam GI: Inspection: non-distended GI Palp: Yes Soft to palpation and Yes Tenderness to palpation present (GI) (Incisional) Objective Data Vital Signs Vital Signs: Vital Signs - 24 hr 09/27/22 20:00 09/28/22 00:00 09/28/22 04:00 Temperature 36.8 C 36.1 C L 36.1 C L Pulse Rate 82 77 75 Respiratory Rate 14 14 14 Blood Pressure 122/72 147/81 H 158/82 H Pulse Oximetry 93 93 93 Oxygen Delivery 09/28/22 08:00 09/28/22 08:00 09/28/22 12:00 Temperature 36.4 C 36.5 C Pulse Rate 69 69 73 Respiratory Rate 16 16 16 Blood Pressure 154/77 H 154/77 H Pulse Oximetry 99 99 99 Oxygen Delivery Room Air Intake/Output Intake/Output: Intake & Output 09/25/22 09/26/22 09/27/22 09/28/22 23:59 23:59 23:59 23:59 Intake Total 2050 1500 2380 830 Output Total 1200 800 Balance 2050 300 1580 830 Meds/Results Medications: Active Medications Generic Name Dose Route Start Last Admin Trade Name Freq PRN Reason Stop Dose Admin Hydrocodone Bitart/Acetaminophen 1 tab 09/26/22 18:09 09/26/22 20:17 Hydrocodone/Acetaminophen (*Crx) 5-325 Mg Tablet PO 1 tab Q4H PRN Administration Pain Rated 4-6 Hydrocodone Bitart/Acetaminophen 1 tab 09/26/22 18:09 09/27/22 09:19 Hydrocodone/Acetaminophen (*Crx) 7.5-325 Mg Tablet PO 1 tab Q4H PRN Administration Pain Rated 7-10 Dextrose 12.5 gm 09/25/22 22:33 09/26/22 11:53 Dextrose 50% 25 Gm/50 Ml Syringe IV PUSH 12.5 gm PRN PRN Administration Hypoglycemia Protocol Glucagon 1 mg 11/20/22 22:33 Glucagon For Inj 1 Mg Vial IM PRN PRN Hypoglycemia Protocol Glucose 15 gm 09/25/22 22:33 Glucose Oral Gel 15 Gm Of Glucse In 37.5 Gm Tube PO PRN PRN Hypoglycemia Protocol Hydromorphone HCl 0.5 mg 09/26/22 18:09 Hydromorphone Hcl Inj (*Crx) 1 Mg/Ml Syr IV PUSH Q2H PRN Pain Rated 4-6 Hydromorphone HCl 1 mg 09/26/22 18:09 Hydromorphone Hcl Inj (*Crx) 1 Mg/Ml Syr IV PUSH Q2H PRN Pain Rated 7-10 Dextrose 1,000 mls @ 100 mls/hr 09/25/22 22:33 Dextrose 5% 1,000 Ml IVPB PRN PRN Hypoglycemia Protocol Piperacillin Sod/Tazobactam Sod 2.25 gm in 50 mls @ 100 mls/hr 09/26/22 03:00 09/28/22 08:49 Zosyn 2.25 Gm/D5w 50 Ml IVPB 100 mls/hr Q6H [facility] Administration Ibuprofen 600 mg 09/26/22 18:09 09/28/22 12:58 Ibuprofen 600 Mg Tablet PO 600 mg Q6H PRN Administration Pain Rated 1-3 Insulin Aspart 4 - 8 units 09/27/22 17:00 09/28/22 12:04 Insulin Aspart (*Bkc) 100 Units/Ml SUB-Q Not Given TIDWM [facility] Protocol Insulin Aspart 20 units 09/28/22 06:30 09/28/22 06:03 Insuln Asp Prt/Insulin Aspart 100 Units/MlNovolog Mix(*Bkc) SUB-Q Not Given DAILY@0630 [facility] Insulin Glargine 10 units 09/26/22 21:00 09/27/22 20:27 Insulin Glargine (*Bkc) 100 Units/Ml SUB-Q 10 units HS [facility]OL[facility] Administration Ondansetron HCl 4 mg 09/25/22 20:27 Ondansetron Inj 4 Mg/2 Ml Vial IV PUSH Q4H PRN Nausea Pantoprazole Sodium 40 mg 09/26/22 09:00 09/28/22 08:50 Pantoprazole Sodium Iv 40 Mg Vial IV PUSH 40 mg Q12HR [facility] Administration Radiology Results: ITS Impressions Abdomen/Pelvis CT 09/25/22 19:30 IMPRESSION: Acute cholecystitis. Adjacent reactive inflammatory changes present in the gastric antrum, duodenum, and hepatic flexure. Labs Labs: Laboratory Results - last 24 hr 09/27/22 09/27/22 09/28/22 16:04 20:26 05:25 WBC RBC Hgb Hct MCV MCH MCHC R
[2022-09-28 16:45] LABS: Glucose Point of Care 186 mg/dl (65-105)
== END 2022-09-28 18:00 | disposition home or self-care (01) ==
LOC: ANHED 20:29 → ANH3MEDSUR 09-26 10:40
PROVIDERS: Nurse Practitioner; Nurse Practitioner Family; Surgery; Admitting Provider Student in an Organized Health Care Education/Training Program; Emergency Provider Emergency Medicine; Visit Provider Internal Medicine
PROC: 0FT44ZZ Resection of Gallbladder, Percutaneous Endoscopic Approach (ICD-10-PCS; CPT 47562; principal; 2022-09-26 15:45)
DX: K80.00 Calculus of gallbladder with acute cholecystitis without obstruction (principal); E11.65 Type 2 diabetes mellitus with hyperglycemia; R74.8 Abnormal levels of other serum enzymes; E78.5 Hyperlipidemia, unspecified; E66.9 Obesity, unspecified; Z68.25 Body mass index [BMI] 25.0-25.9, adult; D72.829 Elevated white blood cell count, unspecified; Z79.4 Long term (current) use of insulin; Z79.899 Other long term (current) drug therapy; Z83.3 Family history of diabetes mellitus; Z20.822 Contact with and (suspected) exposure to COVID-19
CPT/HCPCS: 47562; 36415; 74177; 80053; 81001; 82948; 83036; 83605; 83690; 83735; 84443; 85025; 87040; 87636; 88304; 96361; 96365; 96366; 96375; 96376; 99285; A9270; C9113; G0378; J1100; J1170; J1815; J2405; J2543; J2704; J2710; J3010; J7030; J7042; J7120; Q9967